=== PATIENT | male | born 1960 | race Caucasian/White ===

== ENCOUNTER 2017-06-22 19:35 | Observation (INO) | payer BC, OTHER ==
--- NOTE | 2017-06-22 20:14 | ED ---
General Adult HPI - General Chief complaint: Chest Pain Stated complaint: Chest tightness/SOB Time Seen by Provider: 06/22/17 19:55 Source: patient, RN notes reviewed Mode of arrival: wheelchair Limitations: no limitations - History of Present Illness Initial comments: 56-year-old male with no significant past medical history presents with a 5 day history of substernal chest pressure. Patient states that while at rest he has had multiple episodes of this pain. It is associated with shortness of breath and belching. Patient also reports a fullness in his throat and neck. Pain lasts several seconds. Nonexertional. No known history of coronary artery disease. Patient states had a stress test many years ago that was normal. Patient is a nonsmoker. He has a strong family history of coronary artery disease including his father at age 40 - Related Data Home Medications Medication Instructions Recorded Confirmed Amoxicillin 2,000 mg PO ONCE PRN 06/22/17 06/22/17 Allergies Allergy/AdvReac Type Severity Reaction Status Date / Time No Known Allergies Allergy Verified 06/22/17 19:53 Review of Systems ROS Statement: Those systems with pertinent positive or pertinent negative responses have been documented in the HPI. ROS Other: All systems not noted in ROS Statement are negative. Past Medical History Past Medical History: Hyperlipidemia, Osteoarthritis (OA), Sleep Apnea/CPAP/ BIPAP Additional Past Medical History / Comment(s): varicose veins, uses CPAP History of Any Multi-Drug Resistant Organisms: None Reported Past Surgical History: Appendectomy, Joint Replacement, Orthopedic Surgery Additional Past Surgical History / Comment(s): nasal surgery, rt shoulder surgery, left knee arthroscopy, left knee rpelaced Past Anesthesia/Blood Transfusion Reactions: Previous Problems w/ Anesthesia, Motion Sickness Additional Past Anesthesia/Blood Transfusion Reaction / Comment(s): previous knee arthroscopy - "stopped breathing - irregular heartrate"-no problems w/ recent total knee Past Psychological History: No Psychological Hx Reported Smoking Status: Never smoker Past Alcohol Use History: None Reported Past Drug Use History: None Reported - Past Family History Mother Family Medical History: No Reported History General Exam Limitations: no limitations General appearance: alert, in no apparent distress Head exam: Present: atraumatic, normocephalic Eye exam: Present: normal appearance, PERRL ENT exam: Present: normal exam Neck exam: Present: normal inspection. Absent: tenderness, meningismus Respiratory exam: Present: normal lung sounds bilaterally. Absent: respiratory distress, wheezes Cardiovascular Exam: Present: regular rate, normal rhythm GI/Abdominal exam: Present: soft. Absent: distended, tenderness, guarding Extremities exam: Present: normal inspection, normal capillary refill, pedal edema. Absent: calf tenderness Neurological exam: Present: alert, oriented X3, CN II-XII intact. Absent: motor sensory deficit Psychiatric exam: Present: normal affect, normal mood Skin exam: Present: warm, dry, intact. Absent: cyanosis, diaphoretic Course Vital Signs 06/22/17 06/22/17 06/22/17 19:38 20:27 21:14 Temperature 98 F Pulse Rate 74 77 65 Respiratory 16 20 18 Rate Blood Pressure 144/84 136/74 117/57 O2 Sat by Pulse 96 98 98 Oximetry EKG Findings - EKG Comments: EKG Findings:: EKG shows normal sinus rhythm, ventricular rate 74, NJ interval 208, QRS duration 106, QTC 4:15, no ST segment elevation, no T-wave inversions no ST segment depression Medical Decision Making - Medical Decision Making 56-year-old male presents with intermittent chest pressure and shortness of breath. Chest pressure lasts only seconds, Relieved by belching. EKG is nonischemic, chest x-ray shows no acute findings, laboratory studies reveals white blood cell count which is normal, hemoglobin stable 14.6, normal lipase, electrolytes are within normal limits. BNP: 31 Trop: neg Patient will be placed in observation for serial cardiac enzymes, telemetry, and cardiology consult. Diagnosis: Chest pain - Lab Data Result diagrams: 06/22/17 20:32 06/22/17 20:32 Lab Results 06/22/17 06/22/17 06/22/17 Range/Units 20:32 20:32 20:32 WBC 5.3 (3.8-10.6) k/uL RBC 5.08 (4.30-5.90) m/uL Hgb 14.6 (13.0-17.5) gm/dL Hct 43.1 (39.0-53.0) % MCV 84.9 (80.0-100.0) fL MCH 28.8 (25.0-35.0) pg MCHC 33.9 (31.0-37.0) g/dL RDW 13.9 (11.5-15.5) % Plt Count 197 (150-450) k/uL Neutrophils % 56 % Lymphocytes % 28 % Monocytes % 7 % Eosinophils % 7 % Basophils % 1 % Neutrophils # 2.9 (1.3-7.7) k/uL Lymphocytes # 1.5 (1.0-4.8) k/uL Monocytes # 0.4 (0-1.0) k/uL Eosinophils # 0.4 (0-0.7) k/uL Basophils # 0.1 (0-0.2) k/uL PT (9.0-12.0) sec INR (<1.2) APTT (22.0-30.0) sec Sodium 137 (137-145) mmol/L Potassium 3.7 (3.5-5.1) mmol/L Chloride 107 (98-107) mmol/L Carbon Dioxide 21 L (22-30) mmol/L Anion Gap 9 mmol/L BUN 17 (9-20) mg/dL Creatinine 1.00 (0.66-1.25) mg/dL Est GFR (MDRD) Af Amer >60 (>60 ml/min/1.73 sqM) Est GFR (MDRD) Non-Af >60 (>60 ml/min/1.73 sqM) Glucose 119 H (74-99) mg/dL Calcium 9.1 (8.4-10.2) mg/dL Magnesium 2.2 (1.6-2.3) mg/dL Total Bilirubin 0.3 (0.2-1.3) mg/dL AST 20 (17-59) U/L ALT 30 (21-72) U/L Alkaline Phosphatase 79 (38-126) U/L Total Creatine Kinase 73 (55-170) U/L CK-MB (CK-2) 0.9 (0.0-2.4) ng/mL CK-MB (CK-2) Rel Index 1.2 Troponin I <0.012 (0.000-0.034) ng/mL NT-Pro-B Natriuret Pep pg/mL Total Protein 6.1 L (6.3-8.2) g/dL Albumin 3.8 (3.5-5.0) g/dL Amylase 30 (30-110) U/L Lipase 107 (23-300) U/L 06/22/17 06/22/17 Range/Units 20:32 20:32 WBC (3.8-10.6) k/uL RBC (4.30-5.90) m/uL Hgb (13.0-17.5) gm/dL Hct (39.0-53.0) % MCV (80.0-100.0) fL MCH (25.0-35.0) pg MCHC (31.0-37.0) g/dL RDW (11.5-15.5) % Plt Count (150-450) k/uL Neutrophils % % Lymphocytes % % Monocytes % % Eosinophils % % Basophils % % Neutrophils # (1.3-7.7) k/uL Lymphocytes # (1.0-4.8) k/uL Monocytes # (0-1.0) k/uL Eosinophils # (0-0.7) k/uL Basophils # (0-0.2) k/uL PT 10.1 (9.0-12.0) sec INR 1.0 (<1.2) APTT 21.4 L (22.0-30.0) sec Sodium (137-145) mmol/L Potassium (3.5-5.1) mmol/L Chloride (98-107) mmol/L Carbon Dioxide (22-30) mmol/L Anion Gap mmol/L BUN (9-20) mg/dL Creatinine (0.66-1.25) mg/dL Est GFR (MDRD) Af Amer (>60 ml/min/1.73 sqM) Est GFR (MDRD) Non-Af (>60 ml/min/1.73 sqM) Glucose (74-99) mg/dL Calcium (8.4-10.2) mg/dL Magnesium (1.6-2.3) mg/dL Total Bilirubin (0.2-1.3) mg/dL AST (17-59) U/L ALT (21-72) U/L Alkaline Phosphatase (38-126) U/L Total Creatine Kinase (55-170) U/L CK-MB (CK-2) (0.0-2.4) ng/mL CK-MB (CK-2) Rel Index Troponin I (0.000-0.034) ng/mL NT-Pro-B Natriuret Pep 31 pg/mL Total Protein (6.3-8.2) g/dL Albumin (3.5-5.0) g/dL Amylase (30-110) U/L Lipase (23-300) U/L Disposition Clinical Impression: Chest pain Disposition: ADMITTED IP TO THIS [facility] Condition: Stable Referrals: Warren Bonilla MD [Primary Care Provider] - 1-2 days Decision to Admit Reason: Admit from EC Decision Date: 06/22/17 Decision Time: 21:15
[2017-06-22 20:43] LABS: Basophils # (A) 0.1 k/uL (0-0.2); Basophils % (A) 1 %; CH 29.5; CHCM 34.9; Eosinophils # (A) 0.4 k/uL (0-0.7); Eosinophils % (A) 7 %; HCT 43.1 % (39.0-53.0); HDW 2.66; HGB 14.6 gm/dL (13.0-17.5); Luc # (Auto) 0.07; Luc % (Auto) 1; Lymphocytes # (A) 1.5 k/uL (1.0-4.8); Lymphocytes % (A) 28 %; MCH 28.8 pg (25.0-35.0); MCHC 33.9 g/dL (31.0-37.0); MCV 84.9 fL (80.0-100.0); Monocytes # (A) 0.4 k/uL (0-1.0); Monocytes % (A) 7 %; Neutrophils # (A) 2.9 k/uL (1.3-7.7); Neutrophils % (A) 56 %; RBC 5.08 m/uL (4.30-5.90); RDW 13.9 % (11.5-15.5); WBC 5.3 k/uL (3.8-10.6); WBC (Perox) 5.32
[2017-06-22] MEDS ORDERED: ASPIRIN 325 MG TAB PO STA (20:57)
[2017-06-22] MEDS ORDERED: MAG HYDROX/AL HYDROX/SIMETH 30 ML, HYOSCYAMINE ELIXIR 10 ML, CIMETIDINE HCL 300 MG, LID... PO STA ×4 (20:58)
--- NOTE | 2017-06-22 21:00 | XR ---
EXAMINATION TYPE: XR chest 2V DATE OF EXAM: 06/22/2017 COMPARISON: 11/19/2015 HISTORY: Chest pain TECHNIQUE: Frontal and lateral views of the chest are obtained. FINDINGS: Heart and mediastinum are normal. Lungs are clear. Diaphragm is normal. There are chest le ads. IMPRESSION: Normal chest. No change.
[2017-06-22 21:01] LABS: ALT 30 U/L (21-72); AST 20 U/L (17-59); Alkaline Phosphatase 79 U/L (38-126); Amylase 30 U/L (30-110); Anion Gap 9 mmol/L; Blood Urea Nitrogen 17 mg/dL (9-20); Calcium 9.1 mg/dL (8.4-10.2); Carbon Dioxide 21 mmol/L (22-30); Chloride 107 mmol/L (98-107); Glucose 119 mg/dL (74-99); Magnesium 2.2 mg/dL (1.6-2.3); Non-African American GFR(MDRD) >60 (>60 ml/min/1.73 sqM); Potassium 3.7 mmol/L (3.5-5.1); Prothrombin Time 10.1 sec (9.0-12.0); Sodium 137 mmol/L (137-145); Total Bilirubin 0.3 mg/dL (0.2-1.3); Total Protein 6.1 g/dL (6.3-8.2)
[2017-06-22 21:05] LABS: Creatine Kinase 73 U/L (55-170)
[2017-06-22 21:13] LABS: Partial Thromboplastin Time 21.4 sec (22.0-30.0)
[2017-06-22] MEDS ORDERED: NALOXONE 0.4 MG/ML 1 ML VIAL IV PRN (21:15)
[2017-06-22] MEDS ORDERED: ACETAMINOPHEN TAB 325 MG TAB PO PRN (21:15)
[2017-06-22] MEDS ORDERED: SODIUM CHLORIDE 0.9% 1,000 ML IV SCH (21:15)
[2017-06-22] MEDS ORDERED: ONDANSETRON 4 MG/2 ML VIAL IVP PRN (21:15)
[2017-06-22 21:17] VITALS: RESP 18
[2017-06-22 21:17] LABS: Creatine Kinase MB 0.9 ng/mL (0.0-2.4); Troponin I <0.012 ng/mL (0.000-0.034)
[2017-06-22 22:11] VITALS: BMI 36.5
[2017-06-23 03:02] LABS: Basophils # (A) 0.1 k/uL (0-0.2); Basophils % (A) 1 %; CH 29.8; Eosinophils # (A) 0.4 k/uL (0-0.7); Eosinophils % (A) 9 %; HCT 41.1 % (39.0-53.0); HDW 2.98; HGB 14.2 gm/dL (13.0-17.5); Luc # (Auto) 0.17; Luc % (Auto) 4; Lymphocytes # (A) 1.3 k/uL (1.0-4.8); Lymphocytes % (A) 30 %; MCH 28.8 pg (25.0-35.0); MCHC 34.7 g/dL (31.0-37.0); Mean Platelet Volume 7.2; Monocytes # (A) 0.3 k/uL (0-1.0); Monocytes % (A) 6 %; Neutrophils # (A) 2.3 k/uL (1.3-7.7); Neutrophils % (A) 51 %; RBC 4.94 m/uL (4.30-5.90); RDW 12.7 % (11.5-15.5); WBC 4.5 k/uL (3.8-10.6); WBC (Perox) 4.36
[2017-06-23 03:26] LABS: ALT 37 U/L (21-72); AST 18 U/L (17-59); Alkaline Phosphatase 68 U/L (38-126); Anion Gap 7 mmol/L; Blood Urea Nitrogen 17 mg/dL (9-20); Calcium 8.9 mg/dL (8.4-10.2); Carbon Dioxide 23 mmol/L (22-30); Chloride 107 mmol/L (98-107); Glucose 103 mg/dL (74-99); Non-African American GFR(MDRD) >60 (>60 ml/min/1.73 sqM); Potassium 4.2 mmol/L (3.5-5.1); Sodium 137 mmol/L (137-145); Total Bilirubin 0.3 mg/dL (0.2-1.3); Total Protein 5.7 g/dL (6.3-8.2)
[2017-06-23 03:33] LABS: Creatine Kinase 40 U/L (55-170)
[2017-06-23 03:45] LABS: Creatine Kinase MB 0.7 ng/mL (0.0-2.4); Troponin I <0.012 ng/mL (0.000-0.034)
[2017-06-23] MEDS ORDERED: ASPIRIN 325 MG TAB PO SCH (09:00)
[2017-06-23 09:13] LABS: Creatine Kinase 38 U/L (55-170)
[2017-06-23 09:26] LABS: Troponin I <0.012 ng/mL (0.000-0.034)
[2017-06-23 09:35] LABS: Creatine Kinase MB 0.6 ng/mL (0.0-2.4)
--- NOTE | 2017-06-23 11:02 | P.CRDCN ---
History of Present Illness Consult date: 06/23/17 Chief complaint: chest pain History of present illness: This is a pleasant 56-year-old gentleman with no significant past medical history of coronary artery disease, diabetes, hypertension, dyslipidemia presented to the hospital complaining of chest discomfort. He was in his usual state of health until last few days when he started experiencing intermittent episodes of chest discomfort of very brief duration, last only for about a few seconds. No associated symptoms of shortness of breath, sweating, dizziness or lightheadedness, or syncope. As I mentioned earlier the patient does not have any risk factor for CAD. Also he does not smoke or drink alcohol. And he has no significant family history of coronary artery disease. The EKG showed sinus rhythm with left anterior fascicular block and without any ischemic ST or T-wave abnormalities. The cardiac enzymes were checked and came in to be unremarkable. The chest x-ray did not show any acute abnormalities. Past Medical History Past Medical History: Osteoarthritis (OA), Sleep Apnea/CPAP/BIPAP Additional Past Medical History / Comment(s): varicose veins, uses CPAP History of Any Multi-Drug Resistant Organisms: None Reported Past Surgical History: Appendectomy, Joint Replacement, Orthopedic Surgery Additional Past Surgical History / Comment(s): nasal surgery, rt shoulder surgery, left knee arthroscopy, left knee rpelaced Past Anesthesia/Blood Transfusion Reactions: Previous Problems w/ Anesthesia, Motion Sickness Additional Past Anesthesia/Blood Transfusion Reaction / Comment(s): previous knee arthroscopy - "stopped breathing - irregular heartrate"-no problems w/ recent total knee Past Psychological History: No Psychological Hx Reported Smoking Status: Never smoker Past Alcohol Use History: None Reported Past Drug Use History: None Reported - Past Family History Mother Family Medical History: No Reported History Father Family Medical History: Myocardial Infarction ([place]) Medications and Allergies Home Medications Medication Instructions Recorded Confirmed Type Amoxicillin 2,000 mg PO ONCE PRN 06/22/17 06/22/17 History Allergies Allergy/AdvReac Type Severity Reaction Status Date / Time No Known Allergies Allergy Verified 06/22/17 19:53 Physical Exam Vitals: Vital Signs Temp Pulse Pulse Resp BP BP Pulse Ox 06/23/17 08:00 18 06/23/17 07:36 98 F 54 L 18 119/67 97 06/23/17 04:00 97.9 F 64 18 114/68 94 L 06/22/17 23:01 18 06/22/17 21:48 97.8 F 59 L 18 140/81 96 06/22/17 21:14 65 18 117/57 98 06/22/17 20:27 77 20 136/74 98 06/22/17 19:38 98 F 74 16 144/84 96 Intake and Output 06/22/17 06/23/17 06/23/17 22:59 06:59 14:59 Other: # Voids 1 Weight 108.862 kg 108.862 kg - Constitutional General appearance: no acute distress - Respiratory Respiratory: bilateral: CTA - Cardiovascular Rhythm: regular Heart sounds: normal: S1, S2 Results 06/23/17 02:32 06/23/17 02:32 Cardiac Enzymes 06/22/17 06/22/17 06/23/17 Range/Units 20:32 20:32 02:32 AST 20 (17-59) U/L CK-MB (CK-2) 0.9 0.7 (0.0-2.4) ng/mL Troponin I <0.012 <0.012 (0.000-0.034) ng/mL 06/23/17 06/23/17 Range/Units 02:32 08:31 AST 18 (17-59) U/L CK-MB (CK-2) 0.6 (0.0-2.4) ng/mL Troponin I <0.012 (0.000-0.034) ng/mL Coagulation 06/22/17 Range/Units 20:32 PT 10.1 (9.0-12.0) sec APTT 21.4 L (22.0-30.0) sec CBC 06/22/17 06/23/17 Range/Units 20:32 02:32 WBC 5.3 4.5 (3.8-10.6) k/uL RBC 5.08 4.94 (4.30-5.90) m/uL Hgb 14.6 14.2 (13.0-17.5) gm/dL Hct 43.1 41.1 (39.0-53.0) % Plt Count 197 202 (150-450) k/uL Comprehensive Metabolic Panel 06/22/17 06/23/17 Range/Units 20:32 02:32 Sodium 137 137 (137-145) mmol/L Potassium 3.7 4.2 (3.5-5.1) mmol/L Chloride 107 107 (98-107) mmol/L Carbon Dioxide 21 L 23 (22-30) mmol/L BUN 17 17 (9-20) mg/dL Creatinine 1.00 1.00 (0.66-1.25) mg/dL Glucose 119 H 103 H (74-99) mg/dL Calcium 9.1 8.9 (8.4-10.2) mg/dL AST 20 18 (17-59) U/L ALT 30 37 (21-72) U/L Alkaline Phosphatase 79 68 (38-126) U/L Total Protein 6.1 L 5.7 L (6.3-8.2) g/dL Albumin 3.8 3.5 (3.5-5.0) g/dL Current Medications Generic Name Dose Route Start Last Admin Trade Name Freq PRN Reason Stop Dose Admin Acetaminophen 650 mg 06/22/17 21:15 Tylenol Tab PO Q6HR PRN Mild Pain or Fever > 100.5 Aspirin 325 mg 06/23/17 09:00 Aspirin PO DAILY ALYSE Sodium Chloride 1,000 mls @ 50 mls/hr 06/22/17 21:15 Saline 0.9% IV .Q20H ALYSE Naloxone HCl 0.2 mg 06/22/17 21:15 Narcan IV Q2M PRN Opioid Reversal Ondansetron HCl 4 mg 06/22/17 21:15 Zofran IVP Q8HR PRN Nausea And Vomiting Intake and Output 06/22/17 06/23/17 06/23/17 22:59 06:59 14:59 Other: # Voids 1 Weight 108.862 kg 108.862 kg 06/23/17 02:32 06/23/17 02:32 Assessment and Plan Assessment: Assessment #1 intermittent episodes of atypical chest discomfort #2 intermittent episodes of fluttering in the chest Plan #1 the patient was ruled out for acute coronary event #2 he does need to have a stress test to rule out any severe underlying CAD #3 I requested the patient to get up and around and if he is asymptomatic he might be able to be discharged home and have the test done as an outpatient. Thank you for allowing us participate in his care
--- NOTE | 2017-06-23 12:36 | P.HPIM ---
History of Present Illness H&P Date: 06/23/17 hISTORY and physical and Discharge summary. 56-year-old male with no significant past medical history presents with a 5 day history of substernal chest pressure. Patient states that while at rest he has had multiple episodes of this pain. It is associated with shortness of breath and belching. Patient also reports a fullness in his throat and neck. Pain lasts several seconds. Nonexertional. No known history of coronary artery disease. Patient states had a stress test many years ago that was normal. Patient is a nonsmoker. He has a strong family history of coronary artery disease including his father at age 40 however it was related to drugs. Patient was admitted for evaluation by cardiology for possible CAD. patient was seen in consultation by and he was cleared to go home and follow up with him as an outpatient for stress test. Review of Systems Constitutional: Denies chills, Denies chronic headaches, Denies lethargy, Denies malaise, Denies weight gain, Denies weight loss Eyes: denies blurred vision, denies bulging eye, denies decreased vision, denies diplopia Ears: deny: decreased hearing Ears, nose, mouth and throat: Denies dysphagia, Denies epistaxis, Denies neck lump, Denies sore throat, Denies vertigo Cardiovascular: Reports chest pain, Reports decreased exercise tolerance, Reports dyspnea on exertion, Reports shortness of breath, Denies high blood pressure, Denies rapid heart beat, Denies syncope Respiratory: Reports dyspnea, Reports sleep apnea, Reports snoring, Denies congestion, Denies cough, Denies cough with sputum, Denies home oxygen, Denies wheezing Gastrointestinal: Reports belching, Reports bloating, Denies abdominal pain, Denies dyspepsia, Denies heartburn, Denies hematemesis, Denies hematochezia, Denies melena, Denies nausea, Denies vomiting Genitourinary: Reports dysuria, Reports nocturia Musculoskeletal: Denies myalgias Musculoskeletal: absent: ankle pain, ankle stiffness, ankle swelling, elbow pain , elbow stiffness, elbow swelling, foot pain, foot stiffness, foot swelling, hand pain, hand stiffness, hand swelling, hip pain, hip stiffness, hip swelling , knee pain, knee stiffness, knee swelling, shoulder pain, shoulder stiffness, shoulder swelling, wrist pain, wrist stiffness, wrist swelling Integumentary: Denies pruritus, Denies rash Neurological: Denies numbness, Denies weakness Psychiatric: Denies anxiety, Denies depression Endocrine: Denies fatigue, Denies weight change Past Medical History Past Medical History: Osteoarthritis (OA), Sleep Apnea/CPAP/BIPAP Additional Past Medical History / Comment(s): varicose veins, uses CPAP History of Any Multi-Drug Resistant Organisms: None Reported Past Surgical History: Appendectomy, Joint Replacement, Orthopedic Surgery Additional Past Surgical History / Comment(s): nasal surgery, rt shoulder surgery, left knee arthroscopy, left knee rpelaced Past Anesthesia/Blood Transfusion Reactions: Previous Problems w/ Anesthesia, Motion Sickness Additional Past Anesthesia/Blood Transfusion Reaction / Comment(s): previous knee arthroscopy - "stopped breathing - irregular heartrate"-no problems w/ recent total knee Past Psychological History: No Psychological Hx Reported Smoking Status: Never smoker Past Alcohol Use History: None Reported Past Drug Use History: None Reported - Past Family History Mother Family Medical History: Dementia (Mother is 80-year-old has history of dementia. ) Father Family Medical History: Myocardial Infarction ([place]) (Father is 81-year-old had history of [place] at age of 40 secondary to drugs.) Brother(s) Family Medical History: No Reported History (Patient had one brother who at age of 80 from suicide.) Sister(s) Family Medical History: No Reported History (Patient had a sister who as an infant due to SIDS) Daughter(s) Family Medical History: No Reported History (Patient has one daughter 31-year- old no major medical problems.) Son(s) Family Medical History: No Reported History (Patient has one son 29-year-old no major medical problems) Medications and Allergies Allergies Allergy/AdvReac Type Severity Reaction Status Date / Time No Known Allergies Allergy Verified 06/22/17 19:53 Physical Exam Vitals: Vital Signs Temp Pulse Pulse Resp BP BP Pulse Ox 06/23/17 07:36 98 F 54 L 18 119/67 97 06/23/17 04:00 97.9 F 64 18 114/68 94 L 06/22/17 23:01 18 06/22/17 21:48 97.8 F 59 L 18 140/81 96 06/22/17 21:14 65 18 117/57 98 06/22/17 20:27 77 20 136/74 98 06/22/17 19:38 98 F 74 16 144/84 96 Intake and Output 06/22/17 06/23/17 06/23/17 22:59 06:59 14:59 Other: # Voids 1 Weight 108.862 kg 108.862 kg - Constitutional General appearance: average body habitus, no acute distress - EENT Eyes: anicteric sclerae, EOMI, PERRLA, no ptosis, no scleral icterus, normal appearance ENT: NA/AT, normal oropharynx, no thrush, no tonsillar exudates, no tonsillar swelling Ears: bilateral: normal - Neck Neck: no lymphadenopathy, normal ROM, no rigidity, no stridor, no thyromegaly Carotids: bilateral: upstroke normal Thyroid: bilateral: normal size - Respiratory Respiratory: bilateral: diminished, negative: dullness, rales, rhonchi, wheezing , prolonged expiration, prolonged inspiration - Cardiovascular Rhythm: regular Heart sounds: normal: S1, S2 Abnormal Heart Sounds: systolic murmur, no rub, no S3 Gallop, no S4 Gallop, no click - Gastrointestinal General gastrointestinal: normal bowel sounds, soft, no tenderness, no umbilical hernia, no ventral hernia - Integumentary Integumentary: normal, normal turgor - Neurologic Neurologic: CNII-XII intact - Musculoskeletal Musculoskeletal: gait normal, strength equal bilaterally - Psychiatric Psychiatric: A&O x's 3, appropriate affect, intact judgment & insight Results CBC & Chem 7: 06/23/17 02:32 06/23/17 02:32 Labs: Abnormal Lab Results - Last 24 Hours (Table) 06/22/17 06/22/17 06/23/17 Range/Units 20:32 20:32 02:32 APTT 21.4 L (22.0-30.0) sec Carbon Dioxide 21 L (22-30) mmol/L Glucose 119 H (74-99) mg/dL Total Creatine Kinase 40 L (55-170) U/L Total Protein 6.1 L (6.3-8.2) g/dL 06/23/17 Range/Units 02:32 APTT (22.0-30.0) sec Carbon Dioxide (22-30) mmol/L Glucose 103 H (74-99) mg/dL Total Creatine Kinase (55-170) U/L Total Protein 5.7 L (6.3-8.2) g/dL Thrombosis Risk Factor Assmnt - DVT/VTE Prophylaxis DVT/VTE Prophylaxis: Pharmacologic Prophylaxis ordered, Mechanical Prophylaxis ordered - Choose All That Apply Each Factor Represents 1 point: Age 41-60 years Thrombosis Risk Factor Assessment Total Risk Factor Score: 1 Thrombosis Risk Factor Assessment Level: Low Risk Assessment and Plan Assessment: Assessment and Plan: 1. Chest pain likely non cardiac with few worrisome features. will evaluate for CAD.cardiology consult, echocardiogram and possible stress test as an outpatient. Discussed with the patient the need to have an ultrasound of the gallbladder as well as HIDA scan with CCK as an outpatient for possible gallbladder disease. 2. Sleep apnea. will continue with CPAP. Patient was advised to wait loss and engage in healthy activities. Including diet and exercise and weight loss. 3. OA. stable. Post left total knee arthroplasty. About a year ago. 4. DVT prophylaxis. will continue with Heparin SC. 5. CI prophylaxis. same Rx. 6. Home and follow up with and in 1 week./
[2017-06-23 12:48] VITALS: BP 149/88; PULSE 78; TEMP 97.9
== END 2017-06-23 13:03 | disposition home or self-care (01) ==
LOC: EC 19:35 → 3OBS 21:15
PROVIDERS: ADMIT Internal Medicine; ATTEND Internal Medicine
DX: R07.89 Other chest pain (principal); G47.30 Sleep apnea, unspecified; Z99.89 Dependence on other enabling machines and devices; M19.90 Unspecified osteoarthritis, unspecified site; I83.90 Asymptomatic varicose veins of unspecified lower extremity; Z96.652 Presence of left artificial knee joint; Z82.49 Family history of ischemic heart disease and other diseases of the circulatory system
CPT/HCPCS: 36415; 93005; 83880; 80053 ×2; 82150; 82550 ×2; 82553 ×2; 83690; 83735; 84484 ×2; 85025 ×2; 85610; 85730; 71020; 99285; G0378 ×2

== ENCOUNTER → 2019-04-14 | Outpatient (CLI) | payer BC ==
--- NOTE | 2019-04-14 15:28 | CT ---
EXAMINATION TYPE: CT sinus wo con DATE OF EXAM: 04/14/2019 COMPARISON: NONE HISTORY: Sinus pain and pressure x 4 months. Chronic sinusitis border. CT DLP: 660.9 mGycm. Automated Exposure Control for Dose Reduction was Utilized. TECHNIQUE: CT scan of the sinuses is performed without contrast, axial images are obtained, coronal r eformatted images are also reviewed. FINDINGS: There is small degree of curvilinear mucosal thickening posterior left sphenoid sinus. Ther e is similar mild mucosal thickening left anterior ethmoid sinus axial image 40. Remainder paranasal sinuses are clear without suspicious opacification or air-fluid levels The ostiomeatal complex is pa tent bilaterally on the coronal images. The nasal septum is deviated to right of midline inferiorly. Visualized portion of mastoid air cells show no abnormal opacification. The globes are intact bilate rally. IMPRESSION: Mild chronic paranasal sinus disease. No acute sinusitis.
== END | disposition home or self-care (01) ==
LOC: RADCTMAIN 14:40
PROVIDERS: ATTEND Otolaryngology
DX: J32.9 Chronic sinusitis, unspecified (principal)
CPT/HCPCS: 70486

== ENCOUNTER 2019-09-22 17:43 | Observation (INO) | payer BC ==
--- NOTE | 2019-09-22 18:46 | ED ---
Chest Pain HPI - General Chief Complaint: Chest Pain Stated Complaint: chest pain, SOB Time Seen by Provider: 09/22/19 18:01 Source: patient, RN notes reviewed, old records reviewed Mode of arrival: wheelchair Limitations: no limitations - History of Present Illness Initial Comments: This is a 58-year-old male DF for evaluation patient is persistent chest pain left-sided chest pain patient has current evidence current chest pain but mainly shortness of breath shortness with exertion asthma to lower extremity edema concern for heart failure. No significant medical history otherwise. No known history of blood pressure cholesterol or diabetes nonsmoker. No significant recent travel history or sick contacts. Patient is his main complaint appears to be 6 exertional dyspnea MD Complaint: chest pain, other (Exertional dyspnea) -: days(s) Pain Location: left chest Severity: moderate Severity scale (1-10): 4 Quality: heaviness Consistency: constant, intermittent Improves With: nothing Worsens With: nothing Anginal Symptoms: dyspnea Other Symptoms: palpitations Treatments Prior to Arrival: none - Related Data Allergies Allergy/AdvReac Type Severity Reaction Status Date / Time No Known Allergies Allergy Verified 09/22/19 17:56 Review of Systems ROS Statement: Those systems with pertinent positive or pertinent negative responses have been documented in the HPI. ROS Other: All systems not noted in ROS Statement are negative. EKG Findings - EKG Comments: EKG Findings:: EKG shows sinus rhythm of 65, IL 240, QRS 90, QTC 382 Past Medical History Past Medical History: Osteoarthritis (OA), Sleep Apnea/CPAP/BIPAP Additional Past Medical History / Comment(s): varicose veins, uses CPAP History of Any Multi-Drug Resistant Organisms: None Reported Past Surgical History: Appendectomy, Joint Replacement, Orthopedic Surgery Additional Past Surgical History / Comment(s): nasal surgery, rt shoulder surgery, left knee arthroscopy, left knee rpelaced Past Anesthesia/Blood Transfusion Reactions: Previous Problems w/ Anesthesia, Motion Sickness Additional Past Anesthesia/Blood Transfusion Reaction / Comment(s): previous knee arthroscopy - "stopped breathing - irregular heartrate"-no problems w/recent total knee Past Psychological History: No Psychological Hx Reported Smoking Status: Never smoker Past Alcohol Use History: None Reported Past Drug Use History: None Reported - Past Family History Mother Family Medical History: Dementia (Mother is 80-year-old has history of dementia.) Father Family Medical History: Myocardial Infarction ([place]) (Father is 81-year-old had history of [place] at age of 40 secondary to drugs.) Brother(s) Family Medical History: No Reported History (Patient had one brother who at age of 80 from suicide.) Sister(s) Family Medical History: No Reported History (Patient had a sister who as an infant due to SIDS) Daughter(s) Family Medical History: No Reported History (Patient has one daughter 31-year-old no major medical problems.) Son(s) Family Medical History: No Reported History (Patient has one son 29-year-old no major medical problems) General Exam Limitations: no limitations General appearance: alert, in no apparent distress, anxious Head exam: Present: atraumatic, normocephalic, normal inspection Eye exam: Present: normal appearance, PERRL, EOMI. Absent: scleral icterus, conjunctival injection, periorbital swelling ENT exam: Present: normal exam, mucous membranes moist Neck exam: Present: normal inspection. Absent: tenderness, meningismus, lymphadenopathy Respiratory exam: Present: normal lung sounds bilaterally. Absent: respiratory distress, wheezes, rales, rhonchi, stridor Cardiovascular Exam: Present: regular rate, normal rhythm, normal heart sounds. Absent: systolic murmur, diastolic murmur, rubs, gallop, clicks GI/Abdominal exam: Present: soft, normal bowel sounds. Absent: distended, tenderness, guarding, rebound, rigid Extremities exam: Present: normal inspection, full ROM, normal capillary refill. Absent: tenderness, pedal edema, joint swelling, calf tenderness Back exam: Present: normal inspection Neurological exam: Present: alert, oriented X3, CN II-XII intact Psychiatric exam: Present: normal affect, normal mood Skin exam: Present: warm, dry, intact, normal color. Absent: rash Course Vital Signs 09/22/19 17:56 Temperature 98.1 F Pulse Rate 78 Respiratory 18 Rate Blood Pressure 134/82 O2 Sat by Pulse 96 Oximetry - Reevaluation(s) Reevaluation #1: 09/22/19 19:25 Medical records reviewed Reevaluation #2: 09/22/19 21:04 Patient still does have persistent chest heaviness and shortness of breath with exertion here in the ER especially when he got for x-ray Reevaluation #3: 09/22/19 21:04 Patient family informed of results questions are answered - Consultations Consultation #1: Spoke with urination are agreeable for admissionfor an admission Chest Pain MDM - MDM 58 male to be admitted for chest pain observation no significant typical symptoms, [place] for cardiac observation Critical Care Time Critical Care Time: Yes Total Critical Care Time: 31 Disposition Clinical Impression: Chest pain Disposition: ADMITTED IP TO THIS [facility] Condition: Undetermined Instructions (If sedation given, give patient instructions): Chest Pain (ED) Referrals: None,Stated [Primary Care Provider] - 1-2 days
[2019-09-22 19:01] LABS: Basophils # (A) 0.1 k/uL (0-0.2); Basophils % (A) 1 %; Eosinophils # (A) 0.3 k/uL (0-0.7); Eosinophils % (A) 5 %; HCT 42.8 % (39.0-53.0); HGB 14.7 gm/dL (13.0-17.5); Lymphocytes # (A) 1.4 k/uL (1.0-4.8); Lymphocytes % (A) 25 %; MCH 28.4 pg (25.0-35.0); MCHC 34.4 g/dL (31.0-37.0); MCV 82.4 fL (80.0-100.0); Mean Platelet Volume 7.7; Monocytes # (A) 0.3 k/uL (0-1.0); Monocytes % (A) 5 %; Neutrophils # (A) 3.4 k/uL (1.3-7.7); Neutrophils % (A) 60 %; Platelet Count 237 k/uL (150-450); RBC 5.19 m/uL (4.30-5.90); WBC 5.6 k/uL (3.8-10.6)
--- NOTE | 2019-09-22 19:03 | XR ---
EXAMINATION TYPE: XR chest 2V DATE OF EXAM: 09/22/2019 COMPARISON: 06/22/2017 HISTORY: 58-year-old male with chest pain and shortness of breath TECHNIQUE: PA and lateral views FINDINGS: Heart normal size. Aorta and pulmonary vasculature within normal limits. Mild diffuse peribronchial c uffing and interstitial prominence. No consolidation or pleural effusion. IMPRESSION: Diffuse peribronchial cuffing and interstitial prominence. Correlate for bronchitis, asthma, or atypi abad pneumonias.
[2019-09-22 19:09] LABS: Albumin 4.2 g/dL (3.5-5.0); Calcium 9.3 mg/dL (8.4-10.2); Magnesium 2.1 mg/dL (1.6-2.3); Potassium 4.3 mmol/L (3.5-5.1); Total Bilirubin 0.3 mg/dL (0.2-1.3); Total Protein 6.6 g/dL (6.3-8.2)
[2019-09-22 19:12] LABS: INR 0.9 (<1.2); Partial Thromboplastin Time 22.9 sec (22.0-30.0); Prothrombin Time 9.6 sec (9.0-12.0)
[2019-09-22] MEDS ORDERED: NITROGLYCERIN SL TABS 0.4 MG TAB SUBLINGUAL PRN (21:02)
[2019-09-22] MEDS ORDERED: HEPARIN SODIUM,PORCINE 5,000 UNIT/ML 1 ML VIAL IV PRN (21:02)
[2019-09-22] MEDS ORDERED: HEPARIN SODIUM,PORCINE 5,000 UNIT/ML 1 ML VIAL IV ONE (21:02)
[2019-09-22] MEDS ORDERED: ASPIRIN 81 MG PO STA (21:02)
[2019-09-22] MEDS ORDERED: HEPARIN SOD,PORK IN 0.45% NACL 25,000 UNIT in 0.45% NACL 1 250ML.BAG IV SCH (21:15)
[2019-09-23 04:44] LABS: Cholesterol 189 mg/dL (<200); HDL Cholesterol 35 mg/dL (40-60); LDL Cholesterol,Calculated 115 mg/dL (0-99); Triglycerides 193 mg/dL (<150)
[2019-09-23 07:09] LABS: Mean Platelet Volume 7.6; Platelet Count 213 k/uL (150-450)
[2019-09-23] MEDS ORDERED: SODIUM CHLORIDE 0.9% 1,000 ML in EMPTY BAG 1 BAG IV ONE (08:48)
[2019-09-23] MEDS ORDERED: ALPRAZolam 0.25 MG TAB PO PRN (08:48)
[2019-09-23] MEDS ORDERED: NITROGLYCERIN SL TABS 0.4 MG TAB SUBLINGUAL PRN ×2 (08:48→14:52)
[2019-09-23] MEDS ORDERED: ATORVASTATIN 80 MG TAB PO STA (08:48)
[2019-09-23] MEDS ORDERED: ALPRAZolam 0.5 MG TAB PO PRN (08:48)
[2019-09-23] MEDS ORDERED: ASPIRIN 325 MG TAB PO SCH (09:00)
[2019-09-23] MEDS ORDERED: ATORVASTATIN 40 MG TAB PO SCH (09:00)
--- NOTE | 2019-09-23 11:48 | P.CRDCN ---
<Yessica Frances - Last Filed: 09/23/19 11:44> History of Present Illness History of present illness: HISTORY OF PRESENTING ILLNESS This is a pleasant 58-year-old male past medical history significant for obstructive sleep apnea. He denies prior history of coronary artery disease and does not follow with a hse manager or even a primary care physician for that matter. We have been asked to see in consultation for chest pain. He states for the previous 2-3 weeks he has been experiencing an increase in s hortness of breath. He states he does exercise somewhat regularly on an elliptical. He uses the elliptical roughly once per week. He typically can exercise for about 30 minutes with no symptoms however in the last couple weeks he has noticed when he gets on the elliptical he cannot get past 2 minutes without feeling short of breath. He also walks a short distance from his truck into his place of work and he has to stop frequently to catch his breath. Yesterday he was attempting to play catch with his dog in his house and just to get up and get the ball caused him to feel short of breath with exertion. The pain does not radiate through to the back, down the arm, into the neck or the jaw. It remains centrally located is a heavy pressure type sensation. He denies associated dizziness, palpitations, nausea, vomiting or diaphoresis. DIAGNOSTICS EKG reveals sinus mechanism with a first-degree AV block. Chest xray peribronchial cuffing. Laboratory reviewed, CBC unremarkable, sodium 136, potassium 4.3, creatinine 1.09, magnesium 2.1, creatinine enzymes negative 3, NT proBNP 32, d-dimer 0.39, LDL 115 and HDL 35. He takes no daily cardiac medications. REVIEW OF SYSTEMS At the time of my exam: CONSTITUTIONAL: Denies fever or chills. CARDIOVASCULAR: Denies chest pain, shortness of breath, orthopnea, PND or palpitations. RESPIRATORY: Denies cough. GASTROINTESTINAL: Denies abdominal pain, diarrhea, constipation, nausea or vomiting. MUSCULOSKELETAL: Denies myalgias. NEUROLOGIC: Denies numbness, tingling or weakness. ENDOCRINE: Denies fatigue, weight change, polydipsia or polyurina. GENITOURINARY: Denies burning, hematuria or urgency with micturation. HEMATOLOGIC: Denies history of anemia or bleeding. PHYSICAL EXAMINATION Blood pressure 117/76 heart rate 61 afebrile and maintaining oxygen saturation on room air. CONSTITUTIONAL: No apparent distress. HEENT: Head is normocephalic. Pupils are equal, round. Sclerae anicteric. Mucous membranes of the mouth are moist. No JVD. No carotid bruit. CHEST EXAMINATION: Lungs are clear to auscultation. No chest wall tenderness is noted on palpation or with deep breathing. HEART EXAMINATION: Regular rate and rhythm. S1, S2 heard. No murmurs, gallops or rub. ABDOMEN: Soft, nontender. Positive bowel sounds. EXTREMITIES: 2+ peripheral pulses, no lower extremity edema and no calf tenderness. NEUROLOGIC EXAMINATION: Patient is awake, alert and oriented x3. ASSESSMENT Unstable angina Dyslipidemia Obstructive sleep apnea Family history of premature coronary artery disease, father had cardiac event in his 40s. Obesity, BMI 39 PLAN Recommend proceeding with cardiac catheterization to assess for underlying coronary artery disease. I have discussed the risks, benefits and alternative therapies for the above-mentioned procedure and for both sedation/analgesia as well as necessary blood product administration, if indicated, as they pertain to this patient. The patient has indicated understanding and acceptance of the risks and procedures discussed. Questions have been answered appropriately and he is agreeable to move forward with the above stated procedure. Initiate atorvastatin 40 mg daily for optimal LDL cholesterol less than 70. Obtain 2-D echocardiogram and Doppler study to assess cardiac structure and fun ction. Further recommendations to follow based upon clinical course. Thank you kindly for this consultation. Nurse Practitioner note has been reviewed, I agree with a documented findings and plan of care. Patient was seen and examined. Past Medical History Past Medical History: Sleep Apnea/CPAP/BIPAP Additional Past Medical History / Comment(s): varicose veins, uses CPAP History of Any Multi-Drug Resistant Organisms: None Reported Past Surgical History: Appendectomy, Joint Replacement, Orthopedic Surgery Additional Past Surgical History / Comment(s): nasal surgery, rt shoulder surgery, left knee arthroscopy, left knee replaced Past Anesthesia/Blood Transfusion Reactions: Previous Problems w/ Anesthesia, Motion Sickness Additional Past Anesthesia/Blood Transfusion Reaction / Comment(s): previous knee arthroscopy - "stopped breathing - irregular heartrate"-no problems total knee Past Psychological History: No Psychological Hx Reported Smoking Status: Never smoker Past Alcohol Use History: None Reported Past Drug Use History: None Reported - Past Family History Mother Family Medical History: Dementia Father Family Medical History: Myocardial Infarction ([place]) Brother(s) Family Medical History: No Reported History (Patient had one brother who at age of 80 from suicide.) Additional Family Medical History / Comment(s): suicide Sister(s) Family Medical History: No Reported History (Patient had a sister who as an infant due to SIDS) Additional Family Medical History / Comment(s): SIDS Daughter(s) Family Medical History: No Reported History Son(s) Family Medical History: No Reported History Medications and Allergies Home Medications Medication Instructions Recorded Confirmed Type No Known Home Medications 09/22/19 09/22/19 History Allergies Allergy/AdvReac Type Severity Reaction Status Date / Time No Known Allergies Allergy Verified 09/22/19 22:47 Physical Exam Vitals: Vital Signs Temp Pulse Pulse Resp BP BP BP 09/23/19 07:20 98.2 F 57 L 18 119/76 09/23/19 05:00 97.9 F 62 18 115/77 09/22/19 22:34 97.8 F 53 L 18 118/73 09/22/19 21:39 61 18 112/77 09/22/19 17:56 98.1 F 78 18 134/82 Pulse Ox 09/23/19 07:20 96 09/23/19 05:00 96 09/22/19 22:34 97 09/22/19 21:39 95 09/22/19 17:56 96 Intake and Output 09/22/19 09/23/19 09/23/19 22:59 06:59 14:59 Intake Total 69.819 Balance 69.819 Intake: Intake, IV Titration 69.819 Amount Heparin Sod,Pork in 0.45% 69.819 NaCl 25,000 unit In 0.45 % NaCl 1 250ml.bag @ 8 UNITS/KG/HR 9.435 mls/hr IV .Q24H [facility] Rx#: [id number] Other: Voiding Method Toilet # Voids 1 Weight 118.8 kg Results 09/23/19 06:42 09/22/19 18:23 Cardiac Enzymes 09/22/19 09/22/19 09/23/19 Range/Units 18:23 18:23 00:48 AST 26 (17-59) U/L Troponin I <0.012 <0.012 (0.000-0.034) ng/mL 09/23/19 Range/Units 06:42 AST (17-59) U/L Troponin I <0.012 (0.000-0.034) ng/mL Coagulation 09/22/19 09/23/19 Range/Units 18:23 04:04 PT 9.6 (9.0-12.0) sec APTT 22.9 29.9 (22.0-30.0) sec Lipids 09/23/19 Range/Units 04:04 Triglycerides 193 H (<150) mg/dL Cholesterol 189 (<200) mg/dL HDL Cholesterol 35 L (40-60) mg/dL CBC 09/22/19 09/23/19 Range/Units 18:23 06:42 WBC 5.6 (3.8-10.6) k/uL RBC 5.19 (4.30-5.90) m/uL Hgb 14.7 (13.0-17.5) gm/dL Hct 42.8 (39.0-53.0) % Plt Count 237 213 (150-450) k/uL Comprehensive Metabolic Panel 09/22/19 Range/Units 18:23 Sodium 136 L (137-145) mmol/L Potassium 4.3 (3.5-5.1) mmol/L Chloride 104 (98-107) mmol/L Carbon Dioxide 24 (22-30) mmol/L BUN 21 H (9-20) mg/dL Creatinine 1.09 (0.66-1.25) mg/dL Glucose 120 H (74-99) mg/dL Calcium 9.3 (8.4-10.2) mg/dL AST 26 (17-59) U/L ALT 19 (4-49) U/L Alkaline Phosphatase 89 (38-126) U/L Total Protein 6.6 (6.3-8.2) g/dL Albumin 4.2 (3.5-5.0) g/dL Current Medications Generic Name Dose Route Start Last Admin Trade Name Freq PRN Reason Stop Dose Admin Aspirin 325 mg 09/23/19 09:00 Aspirin PO DAILY ALY[facility] Heparin Sodium (Porcine) 0 unit 09/22/19 21:02 09/23/19 05:22 Heparin IV 4,000 unit Q6HR PRN Administration Low PTT Protocol Heparin Sodium/Sodium Chloride 250 mls @ 9.435 mls/hr 09/22/19 21:15 09/23/19 05:19 25,000 unit/ Sodium Chloride IV 11 units/kg/hr .Q24H ALYSE 12.973 mls/hr Titration Protocol 8 UNITS/KG/HR Nitroglycerin 0.4 mg 09/22/19 21:02 Nitrostat SUBLINGUAL Q5M PRN Chest Pain Intake and Output 09/22/19 09/23/19 09/23/19 22:59 06:59 14:59 Intake Total 69.819 Balance 69.819 Intake: Intake, IV Titration 69.819 Amount Heparin Sod,Pork in 0.45% 69.819 NaCl 25,000 unit In 0.45 % NaCl 1 250ml.bag @ 8 UNITS/KG/HR 9.435 mls/hr IV .Q24H [facility] Rx#: [id number] Other: Voiding Method Toilet # Voids 1 Weight 118.8 kg 09/23/19 06:42 09/22/19 18:23 <Winston Doan - Last Filed: 09/23/19 13:02> History of Present Illness History of present illness: Patient interviewed and examined Continue cardiovascular risk between 8 and 9% Lowest HDL Obstructive sleep apnea BMI 39 Over the last several weeks the patient has had significant reduction in exercise capacity and he is unable to perform activities that he could about a month back Family history of premature coronary artery disease Proceed with coronary angiography today Physical Exam Vitals: Vital Signs Temp Pulse Pulse Resp BP BP BP 09/23/19 11:25 97.5 F L 61 18 117/76 09/23/19 07:20 98.2 F 57 L 18 119/76 09/23/19 05:00 97.9 F 62 18 115/77 09/22/19 22:34 97.8 F 53 L 18 118/73 09/22/19 21:39 61 18 112/77 09/22/19 17:56 98.1 F 78 18 134/82 Pulse Ox 09/23/19 11:25 95 09/23/19 07:20 96 09/23/19 05:00 96 09/22/19 22:34 97 09/22/19 21:39 95 09/22/19 17:56 96 Intake and Output 02/24/20 02/25/20 02/25/20 22:59 06:59 14:59 Intake Total 69.819 Balance 69.819 Intake: Intake, IV Titration 69.819 Amount Heparin Sod,Pork in 0.45% 69.819 NaCl 25,000 unit In 0.45 % NaCl 1 250ml.bag @ 8 UNITS/KG/HR 9.435 mls/hr IV .Q24H [facility] Rx#: [id number] Other: Voiding Method Toilet Toilet # Voids 1 Weight 118.8 kg Results 09/23/19 06:42 09/22/19 18:23 Cardiac Enzymes 09/22/19 09/22/19 09/23/19 Range/Units 18:23 18:23 00:48 AST 26 (17-59) U/L Troponin I <0.012 <0.012 (0.000-0.034) ng/mL 09/23/19 Range/Units 06:42 AST (17-59) U/L Troponin I <0.012 (0.000-0.034) ng/mL Coagulation 09/22/19 09/23/19 Range/Units 18:23 04:04 PT 9.6 (9.0-12.0) sec APTT 22.9 29.9 (22.0-30.0) sec Lipids 09/23/19 Range/Units 04:04 Triglycerides 193 H (<150) mg/dL Cholesterol 189 (<200) mg/dL HDL Cholesterol 35 L (40-60) mg/dL CBC 09/22/19 09/23/19 Range/Units 18:23 06:42 WBC 5.6 (3.8-10.6) k/uL RBC 5.19 (4.30-5.90) m/uL Hgb 14.7 (13.0-17.5) gm/dL Hct 42.8 (39.0-53.0) % Plt Count 237 213 (150-450) k/uL Comprehensive Metabolic Panel 09/22/19 Range/Units 18:23 Sodium 136 L (137-145) mmol/L Potassium 4.3 (3.5-5.1) mmol/L Chloride 104 (98-107) mmol/L Carbon Dioxide 24 (22-30) mmol/L BUN 21 H (9-20) mg/dL Creatinine 1.09 (0.66-1.25) mg/dL Glucose 120 H (74-99) mg/dL Calcium 9.3 (8.4-10.2) mg/dL AST 26 (17-59) U/L ALT 19 (4-49) U/L Alkaline Phosphatase 89 (38-126) U/L Total Protein 6.6 (6.3-8.2) g/dL Albumin 4.2 (3.5-5.0) g/dL Current Medications Generic Name Dose Route Start Last Admin Trade Name Freq PRN Reason Stop Dose Admin Alprazolam 0.25 mg 09/23/19 08:48 Xanax PO Q6HR PRN Mild Anxiety Alprazolam 0.5 mg 09/23/19 08:48 Xanax PO Q6HR PRN Moderate Anxiety Aspirin 325 mg 09/23/19 09:00 09/23/19 09:14 Aspirin PO 325 mg DAILY ALYSE Administration Atorvastatin Calcium 40 mg 09/24/19 09:00 Lipitor PO DAILY [facility] Sodium Chloride 1,000 ml/ IV 1,000 mls @ 118.8 mls/hr 09/23/19 08:48 09/23/19 09:14 Solution IV 09/23/19 17:13 118.8 mls/hr .Q8H26M ONE Administration 1 ML/KG/HR Nitroglycerin 0.4 mg 09/22/19 21:02 Nitrostat SUBLINGUAL Q5M PRN Chest Pain Nitroglycerin 0.4 mg 09/23/19 08:48 Nitrostat SUBLINGUAL Q5M PRN Chest Pain Intake and Output 09/22/19 09/23/19 09/23/19 22:59 06:59 14:59 Intake Total 69.819 Balance 69.819 Intake: Intake, IV Titration 69.819 Amount Heparin Sod,Pork in 0.45% 69.819 NaCl 25,000 unit In 0.45 % NaCl 1 250ml.bag @ 8 UNITS/KG/HR 9.435 mls/hr IV .Q24H [facility] Rx#: [id number] Other: Voiding Method Toilet Toilet # Voids 1 Weight 118.8 kg 09/23/19 06:42 09/22/19 18:23
[2019-09-23] MEDS ORDERED: IV FLUID CONTINUATION 1,000 ML IV ONE (14:10)
[2019-09-23] MEDS ORDERED: MIDAZOLAM 2 MG/2 ML VIAL IVP ONE (14:23)
[2019-09-23] MEDS ORDERED: LIDOCAINE 1% INJ 10MG/ML (20 ML MDV) SQ ONE (14:25)
[2019-09-23] MEDS: VERAPAMIL SYRINGE (5 MG/10 ML) INTRAARTER ONE ×2 (14:25→14:52)
[2019-09-23] MEDS ORDERED: fentaNYL (PF) 50 MCG/ML 2 ML AMP IVP ONE (14:30)
[2019-09-23] MEDS ORDERED: BIVALIRUDIN BOLUS 250 MG/50 ML IV ONE (14:37)
[2019-09-23] MEDS ORDERED: BIVALIRUDIN 250 MG in SODIUM CHLORIDE 0.9% 50 ML IV ONE (14:38)
[2019-09-23] MEDS ORDERED: NITROGLYCERIN 1000MCG/10ML SYRINGE INTRACORON ONE (14:46)
[2019-09-23] MEDS ORDERED: MAG HYDROX/AL HYDROX/SIMETH 30 ML CUP PO PRN (14:52)
[2019-09-23] MEDS ORDERED: RX INFO: IV CONTRAST WAS GIVEN 1 EACH MISC MISCELLANE PRN (14:52)
[2019-09-23] MEDS ORDERED: ZOLPIDEM 5 MG TAB PO PRN (14:52)
[2019-09-23] MEDS ORDERED: ATROPINE SULFATE 0.1 MG/ML 10ML SYRINGE IV PRN (14:52)
[2019-09-23] MEDS ORDERED: PRASUGREL 10 MG TAB PO ONE (14:54)
[2019-09-23] MEDS ORDERED: IOPAMIDOL-370 125ML BTL INJ ONE (14:54)
[2019-09-23] MEDS ORDERED: SODIUM CHLORIDE 0.9% 1,000 ML IV SCH (15:00)
--- NOTE | 2019-09-23 16:00 | ECHOF ---
Referral Reason:cp MEASUREMENTS -------- HEIGHT: 172.7 cm WEIGHT: 129.7 kg BP: 115/77 IVSd: 1.3 cm (0.6 - 1.1) LVIDd: 5.3 cm (3.9 - 5.3) LVPWd: 1.3 cm (0.6 - 1.1) IVSs: 1.4 cm LVIDs: 4.6 cm LVPWs: 1.4 cm LA Diam: 4.0 cm (2.7 - 3.8) RVIDd: 3.2 cm (< 3.3) LAESV Index (A-L): 27.94 ml/m Ao Diam: 3.2 cm (2.0 - 3.7) AV Cusp: 2.0 cm (1.5 - 2.6) EPSS: 0.4 cm MV E Serjio: 0.40 m/s MV DecT: 151 ms MV A Serjio: 0.51 m/s MV E/A Ratio: 0.78 RAP: 5.00 mmHg RVSP: 12.20 mmHg MV EF SLOPE: 114.72 mm/s (70 - 150) MV EXCURSION: 14.23 mm (> 18.000) FINDINGS -------- Sinus rhythm. This was a technically adequate study. The left ventricular size is normal. There is mild concentric left ventricular hypertrophy. Overa ll left ventricular systolic function is normal with, an EF between 55 - 60 %. The diastolic fillin g pattern is normal for the age of the patient 5.55. The right ventricle is normal in size. The left atrial size is normal. Normal LA size by volume 22+/-6 ml/m2. The right atrial size is normal. The aortic valve is trileaflet, and appears structurally normal. No aortic stenosis or regurgitation. Mild mitral annular calcification present. Mild mitral regurgitation is present. Mild tricuspid regurgitation present. Right ventricular systolic pressure is normal at < 35 mmHg. There is no evidence of pulmonary hypertension. There is no pulmonic regurgitation present. The aortic root size is normal. There is no pericardial effusion. CONCLUSIONS -------- 1. Sinus rhythm. 2. This was a technically adequate study. 3. The left ventricular size is normal. 4. There is mild concentric left ventricular hypertrophy. 5. Overall left ventricular systolic function is normal with, an EF between 55 - 60 %. 6. The diastolic filling pattern is normal for the age of the patient 5.55 7. The right ventricle is normal in size. 8. The left atrial size is normal. 9. Normal LA size by volume 22+/-6 ml/m2. 10. The right atrial size is normal. 11. The aortic valve is trileaflet, and appears structurally normal. No aortic stenosis or regurgitat ion. 12. Mild mitral annular calcification present. 13. Mild mitral regurgitation is present. 14. Mild tricuspid regurgitation present. 15. Right ventricular systolic pressure is normal at < 35 mmHg. 16. There is no evidence of pulmonary hypertension. 17. There is no pulmonic regurgitation present. 18. The aortic root size is normal. 19. There is no pericardial effusion. COUNCILPERSON: Temitope Mayberry RDCS
--- NOTE | 2019-09-23 16:04 | P.EN ---
i came to see the pt and he is in the laboratory equipment cleaner per staff, we will follow up
--- NOTE | 2019-09-23 17:38 | CC ---
CARDIAC CATHETERIZATION REPORT DATE OF SERVICE: 09/23/2019 PERFORMING PHYSICIAN: Benjamin Roberts MD. PROCEDURES PERFORMED: 1. Selective right and left coronary angiogram. 2. Successful stenting of the mid right coronary artery using 3.5 x 12 mm Xience drug- eluting stent with an excellent angiographic result and reduction of stenosis from 99% to 0%. INDICATION: This is a 58-year-old gentleman with significant family history of coronary artery disease who was admitted to the observation unit with chest discomfort with classical anginal features. Because of that, a heart catheterization was advised. APPROACH: Right radial artery. COMPLICATIONS: None. LEVEL OF SEDATION: Moderate, with sedation length of 26 minutes. PROCEDURE DESCRIPTION: After obtaining informed consent, the patient was brought to the cardiac lab systems analyst. The right radial artery was cannulated using micropuncture technique. The micropuncture wire passed easily. Then I placed a 6-Hebrew sheath 11 cm at the right radial artery. After that the patient was given 2 mg of verapamil IA. I did selective right and left coronary angiogram using JR4 and JL3.5 catheters. Left heart catheterization was not performed. After that I did intervene on the RCA. Please see separate paragraph for that. SELECTIVE CORONARY ANGIOGRAM: 1. The right coronary artery is a large-caliber vessel and it is a dominant vessel. The RCA has a critical lesion in the mid portion that appeared to be in the range of 99.9%. The RCA after that in the proximal and distal portions appeared to have mild disease only. 2. The left main is angiographically normal. It bifurcates into LCX, ramus intermedius and left anterior descending artery. 3. The left circumflex is a large-caliber vessel. It is a nondominant vessel. The proximal circumflex appeared to be angiographically normal. The mid circumflex is normal and gives rise to an OM1 which appeared to be angiographically normal. The circumflex distally appeared to be normal. 4. The ramus intermedius has mild to moderate disease in the proximal portion. The disease appeared to be in the range of 30% to 40%. 5. The left anterior descending artery. The proximal LAD appeared to have mild plaque. It gives rise to the first diagonal branch, which is a large-caliber vessel with a lesion that appeared to be in the range of 40%. The LAD in the mid and distal portions appeared to be angiographically normal. HEMODYNAMICS: The aortic valve was not crossed. PERCUTANEOUS CORONARY INTERVENTION OF THE RIGHT CORONARY ARTERY: Anticoagulation was initiated using Angiomax. Subsequently I did engage the right coronary artery using JR4 guide. I did wire the RCA using a Whisper wire. I did after that PTCA ballooning using 3.5 x 12 mm balloon before I deployed a 3.5 x 18 mm Xience ALEJANDRO where the stent was positioned under fluoroscopic guidance and deployed under 20 atmospheres for 20 seconds, with the following angiogram showing excellent angiographic results. The procedure was completed without any complication. CONCLUSION: 1. Critical disease involving the mid RCA. 2. Successful stenting of the mid RCA using a 3.5 x 18 mm Xience ALEJANDRO with an excellent angiographic result and reduction of stenosis from 99% to 0%. 3. Mild to moderate nonobstructive disease involving the ramus intermedius. 4. Mild to moderate nonobstructive disease involving the first diagonal of the LAD. POST-PROCEDURE MANAGEMENT: 1. Dual anti-platelet therapy. 2. Risk factor modifications. 3. Aggressive cholesterol control. 4. Follow up with the patient. MMODL / IJN: [id number] /
[2019-09-23] MEDS ORDERED: ACETAMINOPHEN TAB 325 MG TAB ONE (18:02)
[2019-09-23] MEDS ORDERED: ACETAMINOPHEN TAB 325 MG TAB PO PRN (18:03)
[2019-09-23 18:29] VITALS: RESP 18
[2019-09-24 06:53] LABS: African American GFR (CKD) >90 (>60 ml/min/1.73 sqM); Non-African American GFR(CKD) 82 (>60 ml/min/1.73 sqM)
[2019-09-24] MEDS: ATORVASTATIN 40 MG TAB PO SCH ×2 (08:59→09:02)
[2019-09-24] MEDS: PRASUGREL 10 MG TAB PO SCH ×2 (08:59→09:02)
[2019-09-24] MEDS: ASPIRIN 81 MG PO SCH ×2 (08:59→09:03)
[2019-09-24] MEDS: METOPROLOL SUCCINATE (ER) 25 MG TAB.ER.24H PO SCH ×2 (08:59→09:03)
[2019-09-24] MEDS: LISINOPRIL 2.5 MG TAB PO SCH ×2 (08:59→09:03)
[2019-09-24 11:22] VITALS: BMI 39.2
[2019-09-24 12:06] VITALS: BP 137/87; PULSE 67; TEMP 97.4
--- NOTE | 2019-09-24 12:14 | P.PN ---
Subjective Progress Note Date: 09/24/19 This is a pleasant 58-year-old male past medical history significant for obstructive sleep apnea. Presented to the hospital with symptoms of chest discomfort. Patient was taken to the cardiac catheterization lab year yesterday where he underwent angioplasty with stenting of the LAD. He was seen and examined this morning, denied any chest pain, no difficulty in breathing. Hemodynamically stable. Blood pressure 112/74, heart rate in the 60s to 80s, 96% on room air. Creatinine this morning 1.0. Cholesterol 189, LDL 1:15, HDL 35, triglycerides 193. EKG from this morning showed a normal sinus rhythm with no acute changes from post-PCI. Objective - Vital Signs Vital signs: Vital Signs Temp 97.6 F 09/24/19 08:00 Pulse 85 09/24/19 08:00 Resp 18 09/24/19 08:00 BP 112/74 09/24/19 08:00 Pulse Ox 96 09/24/19 08:00 Intake & Output 09/23/19 09/24/19 09/24/19 18:59 06:59 18:59 Intake Total 459 600 225 Output Total 350 Balance 459 250 225 Weight 116.9 kg 116.9 kg Intake: IV 459 Sodium Chloride 0.9% 1, 225 000 ml @ 75 mls/hr IV . [id number] [facility] Rx#:[id number] Intake, IV Titration 600 Amount Sodium Chloride 0.9% 1, 600 000 ml @ 75 mls/hr IV . [id number] [facility] Rx#:[id number] Oral 225 Output: Urine 350 Urine/Stool Mix 0 Other: Voiding Method Toilet Toilet Toilet # Voids 1 # Bowel Movements 0 - Exam CONSTITUTIONAL: No apparent distress. HEENT: Head is normocephalic. Pupils are equal, round. Sclerae anicteric. Mucous membranes of the mouth are moist. No JVD. No carotid bruit. CHEST EXAMINATION: Lungs are clear to auscultation. No chest wall tenderness is noted on palpation or with deep breathing. HEART EXAMINATION: Regular rate and rhythm. S1, S2 heard. No murmurs, gallops or rub. ABDOMEN: Soft, nontender. Positive bowel sounds. EXTREMITIES: 2+ peripheral pulses, no lower extremity edema and no calf tenderness. Right radial site clean and dry, good distal pulse. NEUROLOGIC EXAMINATION: Patient is awake, alert and oriented x3. - Labs CBC & Chem 7: 09/23/19 06:42 09/24/19 05:46 Assessment and Plan Plan: Assessment and plan #1 Unstable angina, status post angioplasty and stenting of the LAD #2 Dyslipidemia #3 Obstructive sleep apnea #4 Family history of premature coronary artery disease, father had cardiac event in his 40s. #5 Obesity, BMI 39 Plan Echocardiogram with Doppler study was reviewed which revealed a normal left ventricular systolic function. The patient may be able to be discharged home today from our perspective, we'll make him a follow-up appointment to see in the office post discharge. Patient has been instructed not to go and play pool tomorrow, he was also scheduled to go snowmobiling this weekend which we have asked him to defer for one week. He will be discharged home on aspirin 81 mg daily, his Lipitor will be increased to 80 mg daily, patient's LDL is 115, lisinopril 2.5 mg daily, metoprolol 12-1/2 mg daily, Effient 10 mg daily, sublingual nitroglycerin as needed for chest pain. DNP note has been reviewed, I agree with a documented findings and plan of care. Patient was seen and examined.
--- NOTE | 2019-09-24 13:10 | P.HPIM ---
History of Present Illness Please consider this is combined H&P and discharge summary Diagnoses: Chest pain, cardiac causes rule out negative coronary angiogram hospital course This is a pleasant 58 years old male with no significant past medical history, he has some sleep apnea on CPAP/BiPAP. He presents because of progressive exertional dyspnea over several months, 30 could not tolerate his workup for 2 minutes so he decided to come to the hospital. He denied chest pain or dizziness. No smoking alcohol or illicit tracts. He is hemodynamically stable, is afebrile, saturating 95% room air. Labs were reviewed including CBC, BMP, liver enzymes and INR and they were unremarkable, serial troponins are negative, d-dimer is negative at 0.39, chest x-ray: Diffuse peribronchial coughing and interstitial prominence. Garlic for bronchitis, asth ma or atypical pneumonias. EKG showing normal sinus rhythm at 65 with QTC 382 Patient has been evaluated by breakfast supervisor and he underwent cardiac cath was showing critical disease, patient status post stent of mid right coronary artery, also he had beur-am-[id number] disease of the ramus intermedius and mild to moderate disease of LAD. Patient was started on aspirin and effient, and the importance of adherence to therapy is explained to the patient and he understands This morning patient is asymptomatic, no chest pain or dyspnea, no abdominal pain, didn't have bowel movement but is passing gases, he is voiding with no problems. No dizziness Patient was cleared for discharge by breakfast supervisor problems and management plan were discussed with the patient and he verbalized understanding and acceptance Patient was found stable and can be discharged home however he needs follow-up as an outpatient. Patient was instructed to follow up with PCP within one week and patient agrees, pt is going to a new pcp ,he told me his has his name and contact information and he will call and make appointment , also he agrees with appointment with on [birth year] ( [birth year]) and states he will f ollow up i went over with script with him and it was sent by cardiology team to the pharmacy CONSTITUTIONAL: No fever, no malaise, no fatigue. HEENT: No recent visual problems or hearing problems. Denied any sore throat. CARDIOVASCULAR: No orthopnea, PND, no palpitations, no syncope. PULMONARY: No shortness of breath, no cough, no hemoptysis. GASTROINTESTINAL: No diarrhea, no nausea, no vomiting, no abdominal pain. Normoactive bowel sounds. NEUROLOGICAL: No headaches, no weakness, no numbness. HEMATOLOGICAL: Denies any bleeding or petechiae. GENITOURINARY: Denies any burning micturition, frequency, or urgency. MUSCULOSKELETAL/RHEUMATOLOGICAL: Denies any joint pain, swelling, or any muscle pain. ENDOCRINE: Denies any polyuria or polydipsia. Gen: patient is a AAOx3, no distress CVS: S1-S2, RRR, no murmur Lungs: B/L CTA, no wheezing Abdomen: soft, no distention, no tenderness, positive bowel sounds Extremity: no leg edema or induration Time spent more than 35 minutes Past Medical History Past Medical History: Sleep Apnea/CPAP/BIPAP Additional Past Medical History / Comment(s): varicose veins, uses CPAP History of Any Multi-Drug Resistant Organisms: None Reported Past Surgical History: Appendectomy, Joint Replacement, Orthopedic Surgery Additional Past Surgical History / Comment(s): nasal surgery, rt shoulder surgery, left knee arthroscopy, left knee replaced Past Anesthesia/Blood Transfusion Reactions: Previous Problems w/ Anesthesia, Motion Sickness Additional Past Anesthesia/Blood Transfusion Reaction / Comment(s): previous knee arthroscopy - "stopped breathing - irregular heartrate"-no problems total knee Past Psychological History: No Psychological Hx Reported Smoking Status: Never smoker Past Alcohol Use History: None Reported Past Drug Use History: None Reported - Past Family History Mother Family Medical History: Dementia Father Family Medical History: Myocardial Infarction (SD) Brother(s) Family Medical History: No Reported History (Patient had one brother who at age of 80 from suicide.) Additional Family Medical History / Comment(s): suicide Sister(s) Family Medical History: No Reported History (Patient had a sister who as an infant due to SIDS) Additional Family Medical History / Comment(s): SIDS Daughter(s) Family Medical History: No Reported History Son(s) Family Medical History: No Reported History Medications and Allergies Home Medications Medication Instructions Recorded Confirmed Type Atorvastatin [Lipitor] 40 mg PO DAILY #30 tab 09/23/19 Rx Aspirin 81 mg PO DAILY #30 chew 09/24/19 Rx Atorvastatin [Lipitor] 80 mg PO DAILY #30 tab 09/24/19 Rx Lisinopril [Zestril] 2.5 mg PO DAILY #30 tab 09/24/19 Rx Metoprolol Succinate (ER) [Toprol 12.5 mg PO DAILY #30 tab.er.24h 09/24/19 Rx XL] Nitroglycerin Sl Tabs [Nitrostat] 0.4 mg SUBLINGUAL Q5M PRN #25 tab 09/24/19 Rx Prasugrel [Effient] 10 mg PO DAILY #30 tab 09/24/19 Rx Allergies Allergy/AdvReac Type Severity Reaction Status Date / Time No Known Allergies Allergy Verified 09/22/19 22:47 Physical Exam Vitals: Vital Signs Temp Pulse Pulse Resp BP Pulse Ox 09/24/19 04:00 97.7 F 64 18 119/78 96 09/24/19 03:22 62 18 09/24/19 00:00 97.7 F 64 18 134/79 94 L 09/23/19 20:00 97.5 F L 61 18 121/73 96 09/23/19 18:37 97.9 F 65 18 155/96 96 09/23/19 18:28 97.9 F 65 18 155/96 96 09/23/19 17:57 67 16 135/85 97 09/23/19 16:50 70 18 142/72 94 L 09/23/19 16:20 71 18 146/70 95 09/23/19 15:51 58 L 18 118/72 95 09/23/19 15:37 58 L 18 118/65 98 09/23/19 15:22 60 18 115/72 97 09/23/19 15:07 62 18 125/78 95 09/23/19 11:25 97.5 F L 61 18 117/76 95 Intake and Output 09/23/19 09/24/19 09/24/19 22:59 06:59 14:59 Intake Total 225 600 Output Total 0 350 Balance 225 250 Intake: IV 225 Sodium Chloride 0.9% 1, 225 000 ml @ 75 mls/hr IV . [id number] [facility] Rx#:[id number] Intake, IV Titration 600 Amount Sodium Chloride 0.9% 1, 600 000 ml @ 75 mls/hr IV . [id number] [facility] Rx#:[id number] Output: Urine 0 350 Urine/Stool Mix 0 Other: Voiding Method Toilet Toilet # Voids 1 # Bowel Movements 0 Weight 116.9 kg Results CBC & Chem 7: 09/23/19 06:42 09/24/19 05:46 Thrombosis Risk Factor Assmnt - Choose All That Apply Any of the Below Risk Factors Present?: Yes Each Factor Represents 1 point: Age 41-60 years, Obesity (BMI >25), Swollen legs (current) Other Risk Factors: No Other congenital or acquired thrombophilia - If yes, enter type in comment: No Thrombosis Risk Factor Assessment Total Risk Factor Score: 3 Thrombosis Risk Factor Assessment Level: Moderate Risk
[2019-09-25] MEDS ORDERED: ATORVASTATIN 80 MG TAB PO SCH (09:00)
--- NOTE | 2019-09-26 11:41 | CDI ---
Documentation Clarification Form Date: 09/26/19 From: Neelima York Phone: If you have a question about this query, please contact Lamar Calvin, Assistant Customer Service Manager at [phone] between 8am and 5pm. Admit Date: 09/24/19 Discharge Date:09/24/19 Patient Name: Ector Ferguson Visit Number: [id number] ATTENTION: The Clinical Documentation Specialists (CDI) and [facility] Coding Staff appreciate your assistance in clarifying documentation. Please respond to the clarification below the line at the bottom and electronically sign. The CDI & [facility] Coding staff will review the response and follow-up if needed. Please note: Queries are made part of the Legal Health Record. If you have any questions, please contact the author of this message via ITS. Dear Dr. Alonzo Chest pain is documented in the ED note and the H&P. Unstable angina is documented in the cardiology consult note and 09/24 progress note. Patient C/O: Chest pain and shortness of breath History/Risk factors: Hyperlipidemia, obesity, CAD Clinical Indicators: Chest pain and shortness of breath Labs: BNP 32, Treatment: Angiogram with drug eluting stent to the mid RCA In your professional opinion, can please clarify if the chest pain signifies, or is due to: CAD with angina (specify vessel and type of angina if known) Chest wall pain Unstable angina Other condition, please specify Unable to determine Unstable angina MTDD
== END 2019-09-24 14:36 | disposition home or self-care (01) ==
LOC: EC 17:43 → 1SOBS 21:02 → 3SCARD 09-23 17:07 → OBSVTOIN 09-24 11:07 → INTOOBSV 09-24 11:07 → UNDODISIN 09-24 14:36
PROVIDERS: ADMIT Hospitalist; ATTEND Hospitalist
PROC: 027034Z Dilation of Coronary Artery, One Artery with Drug-eluting Intraluminal Device, Percutaneous Approach (ICD-10-PCS; principal; 2019-09-23 12:35)
PROC: B2111ZZ Fluoroscopy of Multiple Coronary Arteries using Low Osmolar Contrast (ICD-10-PCS; principal; 2019-09-23 12:35)
DX: I25.110 Atherosclerotic heart disease of native coronary artery with unstable angina pectoris (principal); E66.9 Obesity, unspecified; E78.5 Hyperlipidemia, unspecified; G47.33 Obstructive sleep apnea (adult) (pediatric); I44.0 Atrioventricular block, first degree; I83.90 Asymptomatic varicose veins of unspecified lower extremity; M19.90 Unspecified osteoarthritis, unspecified site; Z68.39 Body mass index [BMI] 39.0-39.9, adult; Z79.02 Long term (current) use of antithrombotics/antiplatelets; Z79.82 Long term (current) use of aspirin; Z79.899 Other long term (current) drug therapy; Z90.49 Acquired absence of other specified parts of digestive tract; Z96.60 Presence of unspecified orthopedic joint implant; Z82.49 Family history of ischemic heart disease and other diseases of the circulatory system; Z81.8 Family history of other mental and behavioral disorders; Z83.3 Family history of diabetes mellitus
CPT/HCPCS: 93005 ×3; 96366 ×2; 96376 ×2; 96365; 99291; 36415; 93306; 93458; 85379; 83880; 80061; 80053; 82565; 83690; 83735; 84484 ×2; 85025; 85049; 85610; 85730 ×2; 71046; G0378 ×4; C9600; C1769 ×2; C1887; C1725; C1874; C1894; J2250; J1644 ×3; J2001; J3010; J0583; Q9967

== ENCOUNTER 2020-02-15 21:12 | Emergency (ER) | payer BC ==
[2020-02-15 21:18] VITALS: RESP 18; TEMP 97.9
[2020-02-15] MEDS ORDERED: SODIUM CHLORIDE 0.9% 1,000 ML IV STA (21:35)
--- NOTE | 2020-02-15 21:40 | ED ---
General Adult HPI - General Chief complaint: Weakness Stated complaint: body cramping Time Seen by Provider: 02/15/20 21:19 Source: patient Mode of arrival: ambulatory Limitations: no limitations - History of Present Illness Initial comments: 59-year-old male patient presents to the emergency department today for evaluation of generalized weakness and muscle cramping. Patient states that for the last week he has been having cramping to his legs, and arms. Patient states he'll move a certain way in the muscles will lock up on him. He states that he had a stent placed and started 5 new medications and August of this year. States that initially everything was fine and then he started feeling generally rundown, agitated, [place] he is having muscle wasting. Patient states he hasn't been working out but feels like he is losing weight. He states he just doesn't feel right. Denies any chest pain, shortness of breath, nausea, vomiting. Denies any constipation or diarrhea. Denies any use of herbal supplements. Patient denies any recent rash, fever, chills, cough, back pain, numbness, tingling, dizziness, hematuria, dysuria, urinary urgency, urinary frequency, headache, visual changes, or any other complaints. - Related Data Previous Rx's Medication Instructions Recorded Aspirin 81 mg PO DAILY #30 chew 09/24/19 Atorvastatin [Lipitor] 80 mg PO DAILY #30 tab 09/24/19 Lisinopril [Zestril] 2.5 mg PO DAILY #30 tab 09/24/19 Metoprolol Succinate (ER) [Toprol 12.5 mg PO DAILY #30 tab.er.24h 09/24/19 XL] Nitroglycerin Sl Tabs [Nitrostat] 0.4 mg SUBLINGUAL Q5M PRN #25 tab 09/24/19 Prasugrel [Effient] 10 mg PO DAILY #30 tab 09/24/19 Allergies Allergy/AdvReac Type Severity Reaction Status Date / Time No Known Allergies Allergy Verified 02/15/20 21:18 Review of Systems ROS Statement: Those systems with pertinent positive or pertinent negative responses have been documented in the HPI. ROS Other: All systems not noted in ROS Statement are negative. Past Medical History Past Medical History: Sleep Apnea/CPAP/BIPAP Additional Past Medical History / Comment(s): varicose veins, uses CPAP History of Any Multi-Drug Resistant Organisms: None Reported Past Surgical History: Appendectomy, Joint Replacement, Orthopedic Surgery Additional Past Surgical History / Comment(s): nasal surgery, rt shoulder surgery, left knee arthroscopy, left knee replaced Past Anesthesia/Blood Transfusion Reactions: Previous Problems w/ Anesthesia, Motion Sickness Additional Past Anesthesia/Blood Transfusion Reaction / Comment(s): previous knee arthroscopy - "stopped breathing - irregular heartrate"-no problems total knee Past Psychological History: No Psychological Hx Reported Past Alcohol Use History: None Reported Past Drug Use History: None Reported - Past Family History Mother Family Medical History: Dementia Father Family Medical History: Myocardial Infarction ([place]) Brother(s) Family Medical History: No Reported History (Patient had one brother who at age of 80 from suicide.) Additional Family Medical History / Comment(s): suicide Sister(s) Family Medical History: No Reported History (Patient had a sister who as an infant due to SIDS) Additional Family Medical History / Comment(s): SIDS Daughter(s) Family Medical History: No Reported History Son(s) Family Medical History: No Reported History General Exam Limitations: no limitations General appearance: alert, in no apparent distress, other (This is a well- developed, well-nourished adult male patient in no acute distress. Vital signs upon presentation are temperature 97.9F, pulse 62, respirations 18, blood pressure 132/82, pulse ox 99% on room air.) Eye exam: Present: normal appearance, PERRL, EOMI. Absent: scleral icterus, conjunctival injection, periorbital swelling ENT exam: Present: normal exam, normal oropharynx, mucous membranes moist Respiratory exam: Present: normal lung sounds bilaterally. Absent: respiratory distress, wheezes, rales, rhonchi, stridor Cardiovascular Exam: Present: regular rate, normal rhythm, normal heart sounds. Absent: systolic murmur, diastolic murmur, rubs, gallop, clicks GI/Abdominal exam: Present: soft, normal bowel sounds. Absent: distended, te nderness, guarding, rebound, rigid Neurological exam: Present: alert, oriented X3, CN II-XII intact Psychiatric exam: Present: normal affect, normal mood Skin exam: Present: warm, dry, intact, normal color. Absent: rash Course Vital Signs 07/19/20 07/19/20 21:13 22:10 Temperature 97.9 F Pulse Rate 62 60 Respiratory 18 18 Rate Blood Pressure 132/82 119/77 O2 Sat by Pulse 99 96 Oximetry EKG Findings - EKG Comments: EKG Findings:: EKG obtained at 2148 shows sinus rhythm with a first-degree AV block, left axis deviation. Ventricular rate 60, parent will to 18, QRS duration 106, QT 408, QTC 408. No evidence of ST elevation or depression. Medical Decision Making - Medical Decision Making 59-year-old male patient presents to the emergency department today for evaluation of generalized weakness, aches, and muscle cramping. Patient says his been going on for the last several days. Physical examination is unremarkable. Labs reviewed and reveal elevated TSH, low normal T4. Patient did recently start several new medications including lipitor. EKG showed normal sinus rhythm with 1st degree AV block. I did discuss results with the patient. Discussed that lipitor and hypothyroid may be contributing to symptoms. 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 Return parameters were discussed in detail. He verbalizes understanding and agrees with this plan. - Lab Data Result diagrams: 02/15/20 22:00 02/15/20 22:00 Lab Results 02/15/20 02/15/20 02/15/20 Range/Units 22:00 22:00 22:00 WBC 8.7 (3.8-10.6) k/uL RBC 5.07 (4.30-5.90) m/uL Hgb 14.3 (13.0-17.5) gm/dL Hct 43.4 (39.0-53.0) % MCV 85.6 (80.0-100.0) fL MCH 28.1 (25.0-35.0) pg MCHC 32.8 (31.0-37.0) g/dL RDW 13.3 (11.5-15.5) % Plt Count 214 (150-450) k/uL Neutrophils % 66 % Lymphocytes % 20 % Monocytes % 6 % Eosinophils % 3 % Basophils % 1 % Neutrophils # 5.8 (1.3-7.7) k/uL Lymphocytes # 1.7 (1.0-4.8) k/uL Monocytes # 0.5 (0-1.0) k/uL Eosinophils # 0.3 (0-0.7) k/uL Basophils # 0.1 (0-0.2) k/uL PT 9.5 (9.0-12.0) sec INR 0.9 (<1.2) APTT 22.8 (22.0-30.0) sec Sodium 135 L (137-145) mmol/L Potassium 3.8 (3.5-5.1) mmol/L Chloride 105 (98-107) mmol/L Carbon Dioxide 22 (22-30) mmol/L Anion Gap 8 mmol/L BUN 19 (9-20) mg/dL Creatinine 0.84 (0.66-1.25) mg/dL Est GFR (CKD-EPI)AfAm >90 (>60 ml/min/1.73 sqM) Est GFR (CKD-EPI)NonAf >90 (>60 ml/min/1.73 sqM) Glucose 149 H (74-99) mg/dL Plasma Lactic Acid Jason (0.7-2.0) mmol/L Calcium 8.7 (8.4-10.2) mg/dL Magnesium 2.2 (1.6-2.3) mg/dL Total Bilirubin 0.4 (0.2-1.3) mg/dL AST 23 (17-59) U/L ALT 22 (4-49) U/L Alkaline Phosphatase 117 (38-126) U/L Creatine Kinase (55-170) U/L Troponin I (0.000-0.034) ng/mL Total Protein 6.2 L (6.3-8.2) g/dL Albumin 4.2 (3.5-5.0) g/dL TSH 6.670 H (0.465-4.680) mIU/L Free T4 0.78 (0.78-2.19) ng/dL Urine Color Urine Appearance (Clear) Urine pH (5.0-8.0) Ur Specific [place] (1.001-1.035) Urine Protein (Negative) Urine Glucose (UA) (Negative) Urine Ketones (Negative) Urine Blood (Negative) Urine Nitrite (Negative) Urine Bilirubin (Negative) Urine Urobilinogen (<2.0) mg/dL Ur Leukocyte Esterase (Negative) 02/15/20 02/15/20 02/15/20 Range/Units 22:00 22:00 22:00 WBC (3.8-10.6) k/uL RBC (4.30-5.90) m/uL Hgb (13.0-17.5) gm/dL Hct (39.0-53.0) % MCV (80.0-100.0) fL MCH (25.0-35.0) pg MCHC (31.0-37.0) g/dL RDW (11.5-15.5) % Plt Count (150-450) k/uL Neutrophils % % Lymphocytes % % Monocytes % % Eosinophils % % Basophils % % Neutrophils # (1.3-7.7) k/uL Lymphocytes # (1.0-4.8) k/uL Monocytes # (0-1.0) k/uL Eosinophils # (0-0.7) k/uL Basophils # (0-0.2) k/uL PT (9.0-12.0) sec INR (<1.2) APTT (22.0-30.0) sec Sodium (137-145) mmol/L Potassium (3.5-5.1) mmol/L Chloride (98-107) mmol/L Carbon Dioxide (22-30) mmol/L Anion Gap mmol/L BUN (9-20) mg/dL Creatinine (0.66-1.25) mg/dL Est GFR (CKD-EPI)AfAm (>60 ml/min/1.73 sqM) Est GFR (CKD-EPI)NonAf (>60 ml/min/1.73 sqM) Glucose (74-99) mg/dL Plasma Lactic Acid Jason 1.5 (0.7-2.0) mmol/L Calcium (8.4-10.2) mg/dL Magnesium (1.6-2.3) mg/dL Total Bilirubin (0.2-1.3) mg/dL AST (17-59) U/L ALT (4-49) U/L Alkaline Phosphatase (38-126) U/L Creatine Kinase 116 (55-170) U/L Troponin I <0.012 (0.000-0.034) ng/mL Total Protein (6.3-8.2) g/dL Albumin (3.5-5.0) g/dL TSH (0.465-4.680) mIU/L Free T4 (0.78-2.19) ng/dL Urine Color Urine Appearance (Clear) Urine pH (5.0-8.0) Ur Specific [place] (1.001-1.035) Urine Protein (Negative) Urine Glucose (UA) (Negative) Urine Ketones (Negative) Urine Blood (Negative) Urine Nitrite (Negative) Urine Bilirubin (Negative) Urine Urobilinogen (<2.0) mg/dL Ur Leukocyte Esterase (Negative) 02/15/20 Range/Units 22:41 WBC (3.8-10.6) k/uL RBC (4.30-5.90) m/uL Hgb (13.0-17.5) gm/dL Hct (39.0-53.0) % MCV (80.0-100.0) fL MCH (25.0-35.0) pg MCHC (31.0-37.0) g/dL RDW (11.5-15.5) % Plt Count (150-450) k/uL Neutrophils % % Lymphocytes % % Monocytes % % Eosinophils % % Basophils % % Neutrophils # (1.3-7.7) k/uL Lymphocytes # (1.0-4.8) k/uL Monocytes # (0-1.0) k/uL Eosinophils # (0-0.7) k/uL Basophils # (0-0.2) k/uL PT (9.0-12.0) sec INR (<1.2) APTT (22.0-30.0) sec Sodium (137-145) mmol/L Potassium (3.5-5.1) mmol/L Chloride (98-107) mmol/L Carbon Dioxide (22-30) mmol/L Anion Gap mmol/L BUN (9-20) mg/dL Creatinine (0.66-1.25) mg/dL Est GFR (CKD-EPI)AfAm (>60 ml/min/1.73 sqM) Est GFR (CKD-EPI)NonAf (>60 ml/min/1.73 sqM) Glucose (74-99) mg/dL Plasma Lactic Acid Jason (0.7-2.0) mmol/L Calcium (8.4-10.2) mg/dL Magnesium (1.6-2.3) mg/dL Total Bilirubin (0.2-1.3) mg/dL AST (17-59) U/L ALT (4-49) U/L Alkaline Phosphatase (38-126) U/L Creatine Kinase (55-170) U/L Troponin I (0.000-0.034) ng/mL Total Protein (6.3-8.2) g/dL Albumin (3.5-5.0) g/dL TSH (0.465-4.680) mIU/L Free T4 (0.78-2.19) ng/dL Urine Color Yellow Urine Appearance Clear (Clear) Urine pH 6.0 (5.0-8.0) Ur Specific [place] 1.022 (1.001-1.035) Urine Protein Negative (Negative) Urine Glucose (UA) Negative (Negative) Urine Ketones Negative (Negative) Urine Blood Negative (Negative) Urine Nitrite Negative (Negative) Urine Bilirubin Negative (Negative) Urine Urobilinogen 2.0 (<2.0) mg/dL Ur Leukocyte Esterase Negative (Negative) - Radiology Data Radiology results: report reviewed, image reviewed Two-view x-ray of the chest is obtained. Report was reviewed in its entirety. Impression by Dr. Domingo shows normal chest. No significant change. Disposition Clinical Impression: Muscle cramping, Weakness Disposition: HOME SELF-CARE Condition: Good Instructions (If sedation given, give patient instructions): Hypothyroidism (ED), Weakness (ED), Muscle Cramp (ED) Additional Instructions: Follow up with your primary care physician to discuss medications and your thyroid function. Return to the emergency department for any new, worsening, or concerning symptoms. Is patient prescribed a controlled substance at d/c from ED?: No Referrals: Haim Adams MD [Primary Care Provider] - 1-2 days Time of Disposition: 00:17
--- NOTE | 2020-02-15 22:04 | XR ---
EXAMINATION TYPE: XR chest 2V DATE OF EXAM: 02/15/2020 COMPARISON: 09/22/2019 HISTORY: Weakness TECHNIQUE: FINDINGS: Heart and mediastinum are normal. Lungs are clear. Diaphragm is normal. Bony thorax is norm al. Pulmonary vascularity is normal. IMPRESSION: Normal chest. No significant change.
[2020-02-15 22:08] LABS: Basophils # (A) 0.1 k/uL (0-0.2); Basophils % (A) 1 %; Eosinophils # (A) 0.3 k/uL (0-0.7); Eosinophils % (A) 3 %; HCT 43.4 % (39.0-53.0); HGB 14.3 gm/dL (13.0-17.5); Lymphocytes # (A) 1.7 k/uL (1.0-4.8); Lymphocytes % (A) 20 %; MCH 28.1 pg (25.0-35.0); MCHC 32.8 g/dL (31.0-37.0); MCV 85.6 fL (80.0-100.0); Mean Platelet Volume 6.9; Monocytes # (A) 0.5 k/uL (0-1.0); Monocytes % (A) 6 %; Neutrophils # (A) 5.8 k/uL (1.3-7.7); Neutrophils % (A) 66 %; Platelet Count 214 k/uL (150-450); RBC 5.07 m/uL (4.30-5.90); RDW 13.3 % (11.5-15.5); WBC 8.7 k/uL (3.8-10.6)
[2020-02-15 22:16] LABS: INR 0.9 (<1.2); Partial Thromboplastin Time 22.8 sec (22.0-30.0); Prothrombin Time 9.5 sec (9.0-12.0)
[2020-02-15 22:19] LABS: ALT 22 U/L (4-49); AST 23 U/L (17-59); African American GFR (CKD) >90 (>60 ml/min/1.73 sqM); Albumin 4.2 g/dL (3.5-5.0); Alkaline Phosphatase 117 U/L (38-126); Anion Gap 8 mmol/L; Blood Urea Nitrogen 19 mg/dL (9-20); Calcium 8.7 mg/dL (8.4-10.2); Carbon Dioxide 22 mmol/L (22-30); Chloride 105 mmol/L (98-107); Glucose 149 mg/dL (74-99); Magnesium 2.2 mg/dL (1.6-2.3); Non-African American GFR(CKD) >90 (>60 ml/min/1.73 sqM); Potassium 3.8 mmol/L (3.5-5.1); Sodium 135 mmol/L (137-145); Total Bilirubin 0.4 mg/dL (0.2-1.3); Total Protein 6.2 g/dL (6.3-8.2)
[2020-02-15 22:53] LABS: Appearance,Urine Clear (Clear); Bilirubin,Urine Negative (Negative); Blood,Urine Negative (Negative); Color,Urine Yellow; Glucose,Urine (UA) Negative (Negative); Ketones,Urine Negative (Negative); Leukocyte Esterase,Urine Negative (Negative); Nitrite,Urine Negative (Negative); Protein,Urine Negative (Negative); Specific Gravity,Urine 1.022 (1.001-1.035)
[2020-02-15 23:32] LABS: T4, Free (Free Thyroxine) 0.78 ng/dL (0.78-2.19)
[2020-02-16 00:36] VITALS: BP 115/74; PULSE 62
== END 2020-02-16 00:35 | disposition home or self-care (01) ==
LOC: EC 21:12
DX: R53.1 Weakness (principal); R25.2 Cramp and spasm; R79.89 Other specified abnormal findings of blood chemistry; I44.0 Atrioventricular block, first degree; G47.30 Sleep apnea, unspecified; Z99.89 Dependence on other enabling machines and devices; Z96.652 Presence of left artificial knee joint
CPT/HCPCS: 36415; 71046; 80053; 81003; 82550; 83605; 83735; 84439; 84443; 84484; 85025; 85610; 85730; 93005; 96360; 96361; 99285

== ENCOUNTER → 2020-10-15 | Outpatient (CLI) | payer BC ==
[2020-10-15 16:55] LABS: Hemoglobin A1C 6.1 % (4.0-6.0)
== END | disposition home or self-care (01) ==
LOC: LABWHC1 09:13
PROVIDERS: ATTEND Internal Medicine Sleep Medicine
DX: E11.9 Type 2 diabetes mellitus without complications (principal)
CPT/HCPCS: 36415; 82947; 83036

== ENCOUNTER 2021-08-13 13:44 | Emergency (ER) | payer BC ==
[2021-08-13 13:52] VITALS: RESP 18
[2021-08-13] MEDS ORDERED: ACETAMINOPHEN TAB 500 MG TAB PO STA (14:21)
--- NOTE | 2021-08-13 14:24 | ED ---
General Adult HPI - General Chief complaint: Shortness of Breath Stated complaint: Low oxygen-Sent by Dr. German Time Seen by Provider: 08/13/21 14:01 Source: patient Mode of arrival: ambulatory Limitations: no limitations - History of Present Illness Initial comments: Dictation was produced using [employer]Jam dictation software. please excuse any grammatical, word or spelling errors. Chief Complaint: 60-year-old male past nuchal history of sleep apnea and recent positive test for COVID-19 presents to the emergency department with hypoxia and worsening shortness of breath. History of Present Illness: She is 60-year-old male he is tested positive for Covid recently. He's been symptomatically for the last 8 days. Yesterday patient got monoclonal Antibodies. Today patient has been having worsening shortness of breath. Patient walked several steps and noticed that that he was significantly short of breath. He checked his oxygen at home which was in the mid to low 80s for several minutes. They called primary care physician's office and spoke Dr. German. Patient was instructed to come to the emergency department. At rest patient does not feel significantly winded. He states that shortness of breath has been getting worse special with less steps. Patient has pleuritic chest pain that radiates to his back. The ROS documented in this emergency department record has been reviewed and confirmed by me. Those systems with pertinent positive or negative responses have been documented in the HPI. All other systems are other negative and/or noncontributory. PHYSICAL EXAM: General Impression: Alert and oriented x3, not in acute distress HEENT: Normocephalic atraumatic, extra-ocular movements intact, pupils equal and reactive to light bilaterally, mucous membranes moist. Cardiovascular: Heart regular rate and rhythm Chest: Able to complete full sentences, no retractions, no tachypnea Abdomen: abdomen soft, non-tender, non-distended, no organomegaly Musculoskeletal: Pulses present and equal in all extremities, no peripheral edema Motor: no focal deficits noted Neurological: CN II-XII grossly intact, no focal motor or sensory deficits noted Skin: Intact with no visualized rashes Psych: Normal affect and mood ED course: 60-year-old male presents to the emergency Department for hypoxia at home and worsening dyspnea. Vital signs upon arrival shows temperature 100.1, 91% on room air. At the bedside at rest he is satting well at 94-96%. ambulatory pulse ox was maintained above 90% after several steps around the emergency department. EKG interpretation: Ventricular rate 80, normal sinus rhythm, MD interval 174, QRS 88, QTc 440. No MD prolongation, no QTC prolongation, no ST or T-wave changes noted. Overall, this EKG is unremarkable Laboratory evaluation obtained. CBC is unremarkable. Coag panel is negative. D-dimer is elevated at 0.95 sodium is 126 with elevated BUN to creatinine ratio consistent with dehydration. Rest of labs within acceptable limits. Chest x- ray shows G airspace opacities. CT angios obtained due to elevated d-dimer to rule out pulmonary embolism. CT shows no evidence of acute pulmonary embolism. There is multifocal pneumonia consistent with COVID-19. Patient is observed in emergency department for approximately 2 hours and 30 minutes. Patient is well- appearing at the bedside. He still maintaining oxygen saturations above 90. Patient be discharged and advised follow-up with primary care doctor. Return precautions discussed. Patient and family member are agreeable with plan. - Related Data Previous Rx's Medication Instructions Recorded Aspirin 81 mg PO DAILY #30 chew 09/24/19 Atorvastatin [Lipitor] 80 mg PO DAILY #30 tab 09/24/19 Metoprolol Succinate (ER) [Toprol 12.5 mg PO DAILY #30 tab.er.24h 09/24/19 XL] Nitroglycerin Sl Tabs [Nitrostat] 0.4 mg SUBLINGUAL Q5M PRN #25 tab 09/24/19 Prasugrel [Effient] 10 mg PO DAILY #30 tab 09/24/19 lisinopriL [Zestril] 2.5 mg PO DAILY #30 tab 09/24/19 Allergies Allergy/AdvReac Type Severity Reaction Status Date / Time No Known Allergies Allergy Verified 08/13/21 13:52 Review of Systems ROS Statement: Those systems with pertinent positive or pertinent negative responses have been documented in the HPI. ROS Other: All systems not noted in ROS Statement are negative. Past Medical History Past Medical History: Sleep Apnea/CPAP/BIPAP Additional Past Medical History / Comment(s): varicose veins, uses CPAP History of Any Multi-Drug Resistant Organisms: None Reported Past Surgical History: Appendectomy, Joint Replacement, Orthopedic Surgery Additional Past Surgical History / Comment(s): nasal surgery, rt shoulder surgery, left knee arthroscopy, left knee replaced Past Anesthesia/Blood Transfusion Reactions: Previous Problems w/ Anesthesia, Motion Sickness Additional Past Anesthesia/Blood Transfusion Reaction / Comment(s): previous knee arthroscopy - "stopped breathing - irregular heartrate"-no problems total knee Past Psychological History: No Psychological Hx Reported Smoking Status: Never smoker Past Alcohol Use History: None Reported Past Drug Use History: None Reported - Past Family History Mother Family Medical History: Dementia Father Family Medical History: Myocardial Infarction ([place]) Brother(s) Family Medical History: No Reported History (Patient had one brother who at age of 80 from suicide.) Additional Family Medical History / Comment(s): suicide Sister(s) Family Medical History: No Reported History (Patient had a sister who as an infant due to SIDS) Additional Family Medical History / Comment(s): SIDS Daughter(s) Family Medical History: No Reported History Son(s) Family Medical History: No Reported History General Exam Limitations: no limitations Course Vital Signs 08/13/21 08/13/21 13:48 14:37 Temperature 100.1 F H Pulse Rate 93 72 Respiratory 18 18 Rate Blood Pressure 113/76 O2 Sat by Pulse 91 L 96 Oximetry Medical Decision Making - Lab Data Result diagrams: 08/13/21 14:25 08/13/21 14:25 Lab Results 08/13/21 08/13/21 08/13/21 Range/Units 14:25 14:25 14:25 WBC 8.8 (3.8-10.6) k/uL RBC 5.14 (4.30-5.90) m/uL Hgb 14.8 (13.0-17.5) gm/dL Hct 42.5 (39.0-53.0) % MCV 82.8 (80.0-100.0) fL MCH 28.8 (25.0-35.0) pg MCHC 34.8 (31.0-37.0) g/dL RDW 13.3 (11.5-15.5) % Plt Count 262 (150-450) k/uL MPV 7.5 Neutrophils % 83 % Lymphocytes % 9 % Monocytes % 5 % Eosinophils % 0 % Basophils % 0 % Neutrophils # 7.3 (1.3-7.7) k/uL Lymphocytes # 0.8 L (1.0-4.8) k/uL Monocytes # 0.4 (0-1.0) k/uL Eosinophils # 0.0 (0-0.7) k/uL Basophils # 0.0 (0-0.2) k/uL PT 10.4 (9.0-12.0) sec INR 1.0 (<1.2) APTT 20.8 L (22.0-30.0) sec D-Dimer 0.95 H (<0.60) mg/L FEU Sodium 126 L (137-145) mmol/L Potassium 4.1 (3.5-5.1) mmol/L Chloride 100 (98-107) mmol/L Carbon Dioxide 18 L (22-30) mmol/L Anion Gap 8 mmol/L BUN 30 H (9-20) mg/dL Creatinine 0.88 (0.66-1.25) mg/dL Est GFR (CKD-EPI)AfAm >90 (>60 ml/min/1.73 sqM) Est GFR (CKD-EPI)NonAf >90 (>60 ml/min/1.73 sqM) Glucose 118 H (74-99) mg/dL Calcium 8.0 L (8.4-10.2) mg/dL Magnesium 2.2 (1.6-2.3) mg/dL Total Bilirubin 1.9 H (0.2-1.3) mg/dL AST 60 H (17-59) U/L ALT 58 H (4-49) U/L Alkaline Phosphatase 88 (38-126) U/L Troponin I (0.000-0.034) ng/mL NT-Pro-B Natriuret Pep pg/mL Total Protein 5.9 L (6.3-8.2) g/dL Albumin 3.1 L (3.5-5.0) g/dL 08/13/21 08/13/21 Range/Units 14:25 14:25 WBC (3.8-10.6) k/uL RBC (4.30-5.90) m/uL Hgb (13.0-17.5) gm/dL Hct (39.0-53.0) % MCV (80.0-100.0) fL MCH (25.0-35.0) pg MCHC (31.0-37.0) g/dL RDW (11.5-15.5) % Plt Count (150-450) k/uL MPV Neutrophils % % Lymphocytes % % Monocytes % % Eosinophils % % Basophils % % Neutrophils # (1.3-7.7) k/uL Lymphocytes # (1.0-4.8) k/uL Monocytes # (0-1.0) k/uL Eosinophils # (0-0.7) k/uL Basophils # (0-0.2) k/uL PT (9.0-12.0) sec INR (<1.2) APTT (22.0-30.0) sec D-Dimer (<0.60) mg/L FEU Sodium (137-145) mmol/L Potassium (3.5-5.1) mmol/L Chloride (98-107) mmol/L Carbon Dioxide (22-30) mmol/L Anion Gap mmol/L BUN (9-20) mg/dL Creatinine (0.66-1.25) mg/dL Est GFR (CKD-EPI)AfAm (>60 ml/min/1.73 sqM) Est GFR (CKD-EPI)NonAf (>60 ml/min/1.73 sqM) Glucose (74-99) mg/dL Calcium (8.4-10.2) mg/dL Magnesium (1.6-2.3) mg/dL Total Bilirubin (0.2-1.3) mg/dL AST (17-59) U/L ALT (4-49) U/L Alkaline Phosphatase (38-126) U/L Troponin I <0.012 (0.000-0.034) ng/mL NT-Pro-B Natriuret Pep 45 pg/mL Total Protein (6.3-8.2) g/dL Albumin (3.5-5.0) g/dL Disposition Clinical Impression: COVID-19 Disposition: HOME SELF-CARE Condition: Fair Instructions (If sedation given, give patient instructions): Coronavirus Disease 2019 (COVID-19) Is patient prescribed a controlled substance at d/c from ED?: No Referrals: Haim Adams MD [Primary Care Provider] - 1-2 days
[2021-08-13 14:40] VITALS: PULSE 72
[2021-08-13 14:45] LABS: Basophils % (A) 0 %; Eosinophils % (A) 0 %; HCT 42.5 % (39.0-53.0); HGB 14.8 gm/dL (13.0-17.5); Lymphocytes # (A) 0.8 k/uL (1.0-4.8); Lymphocytes % (A) 9 %; MCH 28.8 pg (25.0-35.0); MCHC 34.8 g/dL (31.0-37.0); MCV 82.8 fL (80.0-100.0); Mean Platelet Volume 7.5; Monocytes # (A) 0.4 k/uL (0-1.0); Monocytes % (A) 5 %; Neutrophils # (A) 7.3 k/uL (1.3-7.7); Neutrophils % (A) 83 %; Platelet Count 262 k/uL (150-450); RBC 5.14 m/uL (4.30-5.90); RDW 13.3 % (11.5-15.5); WBC 8.8 k/uL (3.8-10.6)
[2021-08-13 14:46] LABS: ALT 58 U/L (4-49); AST 60 U/L (17-59); African American GFR (CKD) >90 (>60 ml/min/1.73 sqM); Albumin 3.1 g/dL (3.5-5.0); Alkaline Phosphatase 88 U/L (38-126); Anion Gap 8 mmol/L; Blood Urea Nitrogen 30 mg/dL (9-20); Carbon Dioxide 18 mmol/L (22-30); Chloride 100 mmol/L (98-107); Glucose 118 mg/dL (74-99); Magnesium 2.2 mg/dL (1.6-2.3); Non-African American GFR(CKD) >90 (>60 ml/min/1.73 sqM); Sodium 126 mmol/L (137-145); Total Bilirubin 1.9 mg/dL (0.2-1.3); Total Protein 5.9 g/dL (6.3-8.2)
[2021-08-13 14:49] LABS: Potassium 4.1 mmol/L (3.5-5.1)
[2021-08-13] MEDS ORDERED: SODIUM CHLORIDE 0.9% 1,000 ML IV STA (14:51)
--- NOTE | 2021-08-13 14:58 | XR ---
EXAMINATION TYPE: XR chest 1V portable DATE OF EXAM: 08/13/2021 COMPARISON: 02/15/2020 HISTORY: 60 years Male. STUDY INDICATION GIVEN: hypoxia . TECHNIQUE: AP chest radiograph IMPRESSION: There are patchy airspace opacities the inferior and peripheral aspect of both lungs appears to be gr eater on the right. Mild interstitial edema. Findings suggestive of multifocal pneumonia and mild pul monary edema. No pneumothorax or pleural effusion. The cardiomediastinal silhouette is within normal limits. No acute osseous abnormalities appreciated.
[2021-08-13 15:18] LABS: Prothrombin Time 10.4 sec (9.0-12.0)
[2021-08-13 15:19] LABS: Partial Thromboplastin Time 20.8 sec (22.0-30.0)
--- NOTE | 2021-08-13 16:12 | CT ---
EXAMINATION TYPE: CT angio chest DATE OF EXAM: 08/13/2021 3:47 PM COMPARISON: Chest radiograph from the same day. No prior CT angiogram chest at our institution. HISTORY: sob, low o2, covid CT DLP: 712.7 mGycm Automated exposure control for dose reduction was used. CONTRAST: CTA scan of the thorax is performed with IV Contrast, patient injected with 100 mL of Isovue 370, pul monary embolism protocol. . FINDINGS: Opacification of the pulmonary trunk 252 Hounsfield units. The diameter of pulmonary trunk 2.5 cm. Fi lling defects are seen in the pulmonary arteries. Thoracic aorta is normal in course and caliber. Diffuse bilateral groundglass and nodular opacities. There is no pneumothorax or pleural effusion. No Mediastinal, hilar or axillary lymphadenopathy. Tracheobronchial tree is patent. 4 mm calcified nodu le seen in the right upper lobe. The heart is not enlarged. Coronary arterial calcifications are noted. No pericardial effusion. There is a 1.3 cm low attenuating lesion in the posterior aspect of the right hepatic lobe. No acute or aggressive osseous abnormalities seen. Mild degenerative changes are seen in the thoracic and upper lumbar spine. No significant soft tissue normalities. IMPRESSION: 1. NO EVIDENCE FOR ACUTE PULMONARY ARTERY EMBOLISM. 2. MULTIFOCAL PNEUMONIA. 3. 1.3 CM LOW ATTENUATING LESION POSTERIOR ASPECT OF THE RIGHT GLOBE OF INDETERMINATE ETIOLOGY, FOLLO W-UP URGENT ABDOMEN PELVIC CT HEPATIC MASS PROTOCOL SHOULD BE CONSIDERED.
[2021-08-13] MEDS ORDERED: DEXAMETHASONE SOD PHOSPHATE 10 MG/ML 1 ML VIAL IV STA (16:20)
[2021-08-13 17:11] VITALS: BP 121/66; TEMP 98
== END 2021-08-13 16:45 | disposition home or self-care (01) ==
LOC: EC 13:44
DX: U07.1 COVID-19 (principal); Z79.82 Long term (current) use of aspirin; Z90.49 Acquired absence of other specified parts of digestive tract; Z96.652 Presence of left artificial knee joint
CPT/HCPCS: 99285; 36415; 93005; 85379; 83880; 80053; 83735; 84484; 85025; 85610; 85730; 71045; 71275; Q9967

== ENCOUNTER → 2021-09-07 | Outpatient (CLI) | payer BC ==
--- NOTE | 2021-09-08 05:51 | XR ---
EXAMINATION TYPE: XR chest 2V DATE OF EXAM: 09/07/2021 COMPARISON: CTA chest and chest x-ray August 13, 2021 and older x-rays HISTORY: Cough and chest tightness, history of covid infection 4-5 weeks ago TECHNIQUE: Frontal and lateral views of the chest are obtained. FINDINGS: There is interval improvement in scattered bilateral opacities particularly in the lower l ungs. Background mild chronic parenchymal changes remain present bilaterally. The cardiac silhouette size remains within normal limits. The osseous structures are intact. IMPRESSION: Nearly completely resolved or resolved bilateral multifocal opacities. Background mild t o moderate chronic parenchymal changes redemonstrated without new acute pulmonary process.
--- NOTE | 2021-09-08 05:53 | XR ---
EXAMINATION TYPE: XR knee complete LT DATE OF EXAM: 09/07/2021 CLINICAL HISTORY: Pain and bruising after injury 4-5 weeks ago. TECHNIQUE: Three views of the left knee are obtained. COMPARISON: Prior left knee x-ray December 07, 2015. FINDINGS: There is no acute fracture/dislocation evident in left knee. Metallic hardware from total left knee arthroplasty is redemonstrated and stable in position. New 2.0 cm well-defined ossific den sity superior to the patella to the medial anterior soft tissue suspect heterotopic ossification as n o donor site identified. Mild diffuse subcutaneous edema is now present. IMPRESSION: There is no acute fracture or dislocation in the left knee.
== END | disposition home or self-care (01) ==
LOC: RADXRMAIN 16:55
PROVIDERS: ATTEND Internal Medicine Geriatric Medicine
DX: S80.02XA Contusion of left knee, initial encounter (principal); Z86.16 Personal history of COVID-19; X58.XXXA Exposure to other specified factors, initial encounter; R91.8 Other nonspecific abnormal finding of lung field
CPT/HCPCS: 71046

== ENCOUNTER → 2022-07-28 | Outpatient (CLI) | payer BC | END | disposition home or self-care (01) | LOC: LABPAT 15:17 | PROVIDERS: ATTEND Orthopaedic Surgery | DX: Z01.812 Encounter for preprocedural laboratory examination (principal); M17.11 Unilateral primary osteoarthritis, right knee; Z22.322 Carrier or suspected carrier of Methicillin resistant Staphylococcus aureus | CPT/HCPCS: 87070 ==

== ENCOUNTER 2022-08-08 05:57 | Observation (INO) | payer BC ==
[2022-08-03 11:20] VITALS: BMI 37.5
--- NOTE | 2022-08-07 08:32 | P.HPOR ---
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 He notes pain, swelling along with giving way and locking. He has a difficult time with normal ambulation. He tried medications and injections with only partial temporary relief. Review of Systems As per HPI Past Medical History Past Medical History: Hyperlipidemia, Hypertension, Osteoarthritis (OA), Sleep Apnea/CPAP/BIPAP Additional Past Medical History / Comment(s): varicose veins, uses CPAP History of Any Multi-Drug Resistant Organisms: None Reported Past Surgical History: Appendectomy, Heart Catheterization With Stent, Joint Replacement, Orthopedic Surgery Additional Past Surgical History / Comment(s): nasal surgery, rt shoulder surgery, left knee arthroscopy, left knee replaced, COLONOSCOPY Past Anesthesia/Blood Transfusion Reactions: Previous Problems w/ Anesthesia, Motion Sickness Additional Past Anesthesia/Blood Transfusion Reaction / Comment(s): previous knee arthroscopy - "stopped breathing - irregular heart rate"-no problems total knee Date of Last Stent Placement:: 09/23/19 Smoking Status: Never smoker - Past Family History Mother Family Medical History: Dementia Father Family Medical History: Myocardial Infarction ([place]) Brother(s) Family Medical History: No Reported History Additional Family Medical History / Comment(s): suicide Sister(s) Family Medical History: No Reported History Additional Family Medical History / Comment(s): SIDS Daughter(s) Family Medical History: No Reported History Son(s) Family Medical History: No Reported History Medications and Allergies Home Medications Medication Instructions Recorded Confirmed Type Aspirin 81 mg PO DAILY #30 chew 09/24/19 08/03/22 Rx Atorvastatin [Lipitor] 80 mg PO DAILY #30 tab 09/24/19 08/03/22 Rx Prasugrel [Effient] 10 mg PO DAILY #30 tab 09/24/19 08/03/22 Rx lisinopriL [Zestril] 2.5 mg PO DAILY #30 tab 09/24/19 08/03/22 Rx Allergies Allergy/AdvReac Type Severity Reaction Status Date / Time No Known Allergies Allergy Verified 08/03/22 11:04 Physical Examination - Knee right Appearance: effusion Effusion grade: grade 2 Varus alignment in stance: 10 degrees Tenderness with palpation: medial Pain: with flexion ROM: extension: -5 degrees ROM: flexion: 110 degrees Crepitus with motion: Yes Strength: extension: 5/5 Strength: flexion: 5/5 Meniscal tests: medial meniscal tests: positive, medial joint line pain: positive Results The patient is a well-developed well-nourished male approximately 6 foot 1, 242 pounds of endomorphic habitus. HEENT exam is nonfocal, neck supple. He has painless passive motion of the right hip. Straight leg raise is negative. His distal neurovascular appears intact right lower extremity. - Diagnostic results Knee x-ray: image reviewed (3 views of the right knee obtain the office show severe medial compartment narrowing with [id number] changes and subchondral sclerosis.) Assessment and Plan Assessment: Right knee severe tricompartmental osteoarthrosis Plan: I talked to the patient in length regarding his condition along with treatment options. At this point quite limited because of pain related to his osteoarthrosis despite conservative measures. After thorough discussion he opted to proceed with surgery. We'll plan to proceed with right total knee arthroplasty. We will institute DVT prophylaxis postoperatively. Risks and benefits were discussed at length in layman's terms.
[~2022-08-08 05:57] MED LIST: ACETAMINOPHEN TAB 500 MG TAB PO PRN; MELOXICAM 7.5 MG TAB PO PRN; TRANEXAMIC ACID IN NACL,ISO-OS 1,000 MG in SALINE 1 100ML.BAG IVPB PRN
[2022-08-08] MEDS ORDERED: DEXAMETHASONE SOD PHOSPHATE 4 MG/ML 1 ML VIAL IV ONE (06:08)
[2022-08-08] MEDS ORDERED: MIDAZOLAM 2 MG/2 ML VIAL IV PRN (06:08)
[2022-08-08] MEDS ORDERED: LIDOCAINE 1% (10MG/ML) FOR IV START INTRADERMA PRN (06:08)
[2022-08-08] MEDS: LACTATED RINGERS 1,000 ML IV SCH (06:50)
[2022-08-08] MEDS: ONDANSETRON 4 MG/2 ML VIAL IVP ONE ×2 (06:54→12:20)
[2022-08-08] MEDS ORDERED: MIDAZOLAM 2 MG/2 ML VIAL IVP ONE (07:04)
[2022-08-08] MEDS ORDERED: fentaNYL (PF) 50 MCG/1 ML VIAL IVP ONE (07:04)
--- NOTE | 2022-08-08 07:24 | P.ANPRN ---
Procedure Note - Anesthesia - Nerve Block Performed Right Adductor Canal Infusion Time Out Performed: Yes Date of Procedure: 08/08/22 Procedure Start Time: 07:03 Procedure Stop Time: 07:11 Location of Patient: PreOp Indication: Requested by Surgeon Specifically requested for management of pain by DrJohn: Tomer Mitchell Sedation Type: Sedate with meaningful contact maintained Preparation: Sterile Prep, Sterile Dressing Position: Supine Catheter: Indwelling Needle Types: Pajunk Needle Gauge: 18 Ultrasound used to visualize needle placement: Yes Ultrasound used to observe medication spread: Yes Injectate: 0.5% Ropivacaine (see comment for volume) (15 ml +15 ml NS) Blood Aspirated: No Pain Paresthesia on Injection Noted: No Resistance on Injection: Normal Image Stored and Saved: Yes Events: Uneventful and Well Tolerated
[2022-08-08] MEDS ORDERED: ROPIVACAINE 0.2%-NS ON-Q PUMP 1,090 MG, EMPTY PAIN BALL 1 EACH MISCELLANE PRN (07:25)
--- NOTE | 2022-08-08 07:25 | P.ANPRN ---
Procedure Note - Anesthesia - Nerve Block Performed Right iPack Single Time Out Performed: Yes Date of Procedure: 08/08/22 Procedure Start Time: 07:12 Procedure Stop Time: 07:16 Location of Patient: PreOp Indication: Requested by Surgeon Specifically requested for management of pain by DrJohn: Tomer Mitchell Sedation Type: Sedate with meaningful contact maintained Preparation: Sterile Prep Position: Left Lateral Needle Types: Pajunk Needle Gauge: 21 Ultrasound used to visualize needle placement: Yes Ultrasound used to observe medication spread: Yes Injectate: 0.5% Ropivacaine (see comment for volume) (15 ml + 15 ml NS) Blood Aspirated: No Pain Paresthesia on Injection Noted: No Resistance on Injection: Normal Image Stored and Saved: Yes Events: Uneventful and Well Tolerated
[2022-08-08] MEDS ORDERED: PROPOFOL 10 MG/ML 20 ML VIAL IV ONE (07:33)
[2022-08-08] MEDS ORDERED: MIDAZOLAM 2 MG/2 ML VIAL ONE (07:33)
[2022-08-08] MEDS ORDERED: ROPIVACAINE 5 MG/ML 30 ML VIAL ONE (07:33)
[2022-08-08] MEDS ORDERED: SUCCINYLCHOLINE CHLORIDE 200 MG/10 ML VIAL IV ONE (07:33)
[2022-08-08] MEDS ORDERED: TRANEXAMIC ACID IN NACL,ISO-OS 1,000 MG/100 ML BAG ONE (07:33)
[2022-08-08] MEDS ORDERED: HYDROmorphone (PF) 1 MG/ML ONE (07:33)
[2022-08-08] MEDS ORDERED: LIDOCAINE 2% INJ 20 MG/ML (2 ML VIAL) ONE (07:33)
[2022-08-08] MEDS ORDERED: SODIUM CHLORIDE 0.9% (PF) 10 ML VIAL ONE (07:33)
[2022-08-08] MEDS ORDERED: fentaNYL (PF) 50 MCG/ML 2 ML AMP ONE (07:33)
[2022-08-08] MEDS ORDERED: NALOXONE 0.4 MG/ML 1 ML VIAL IV PRN (09:24)
[2022-08-08] MEDS ORDERED: HYDROcodone/APAP 5-325MG 1 EACH TAB PO PRN (09:24)
[2022-08-08] MEDS ORDERED: HYDROmorphone 1 MG/ML 1 ML SYRINGE IVP PRN (09:24)
[2022-08-08] MEDS ORDERED: MAGNESIUM HYDROXIDE 2,400 MG/10 ML CUP PO PRN (09:24)
[2022-08-08] MEDS ORDERED: LACTATED RINGERS 1,000 ML IV ONE ×3 (09:26→13:11)
--- NOTE | 2022-08-08 09:46 | P.OP ---
Date of Procedure: 08/08/22 Preoperative Diagnosis: Right knee severe tricompartmental osteoarthrosis Postoperative Diagnosis: Same Procedure(s) Performed: Right total knee arthroplastycementedcruciate retaining Implants: [employer] journey 2 size 7 cemented femoral component, size 6 cemented tibial component, 9 mm articular surface, 35 mm cemented patellar component. [facility] Sur[facility]: Tomer Mitchell [employer] Manager #1: Ramirez Eldridge Estimated Blood Loss (ml): 50 Pathology: other (Bone fragments) Condition: stable Disposition: PACU Indications for Procedure: The patient's a 61-year-old male presents with progressive right knee pain se condary to osteoarthrosis despite conservative measures. A discussion of the risks and benefits of operative intervention versus continued conservative measures was made with the patient. He opted to proceed with surgery. Operative risks to include infection, neurovascular injury, development of blood clots, component loosening, component failure, possible need for subsequent procedures was discussed. Informed consent was obtained. Operative Findings: As below Description of Procedure: The patient was brought to the operating room, and after induction of spinal anesthesia the right lower extremity was prepped and draped in a normal fashion. The tourniquet was inflated to 270 mmHg. A longitudinal incision extending 3 finger breaths above the superior pole of the patella extending to the medial aspect the tibial tubercle was then made. The skin and subcutaneous tissues were divided sharply. Electrocautery was used for hemostasis. A medial parapatellar arthrotomy was then performed. The medial soft tissues to include the superficial and deep portions of the medial collateral ligament as well as the medial hamstring tendons were elevated subperiosteally. The proximal medial tibia osteophytes were carefully removed. The patella was everted. The knee was flexed. A portion of the retropatellar fat pad was excised sharply. The anterior cruciate ligament was sacrificed. A starting hole was made in the distal femur 1 cm anterior to the posterior cruciate origin. An intramedullary femoral guide was gently inserted planning on 5 valgus distal cut with 9 mm distal resection. The cutting block was pinned in place. The distal cut was then made. The posterior referencing sizing guide was utilized. 3 of external rotation was built into the system and verified off the trans- epicondylar axis and the posterior condyles. I felt size 7 was most appropriate. The cutting block was pinned in place. The anterior, posterior, and chamfer cuts were then made. The bone fragments were removed. A sulcus cut was then made with the appropriate guide. The trial size 7 femoral component was then placed and was fully seated. There was good anterior to posterior and medial to lateral fit. The distal peg holes were then drilled. The trial component was then removed. Attention was then paid towards preparing the proximal tibia. An extra medullary guide was utilized in line with the tibial shaft and second metatarsal distally. A 3 posterior slope was planned. I planned on 2 mm resection from the medial compartment. The cutting block was pinned in place. The proximal tibial cut was then made. The bone was removed in one fragment. The remnants of the medial and lateral menisci were excised t he capsule junction with electrocautery. The tibia sized most appropriately at size 6. The posterior osteophytes off the distal femur were carefully removed with a curved osteotome. The trial tibial and femoral components were placed along with a 9 millimeters articular surface. I was able to obtain full flexion and extension with good stability with varus and valgus stress. After several flexion and extension cycles, the tibial rotation was marked with electrocautery in line with the medial one third of the tibial tubercle. Attention was then paid towards preparing the patella. A patella reamer was utilized taking this down to 14 mm of bone stock. A good flush cut was made. The patella sized most appropriately at 35 millimeters. The peg holes were then drilled. The trial component was placed. The knee was taken through a range of motion. I had good patellofemoral tracking with no hands technique. The trial components were then removed. The tibia was prepared in the appropriate rotation with appropriate drill and keel punch. The flexion and extension gaps were checked and felt to be symmetric. The bony surfaces were prepared with pulsatile lavage and dried. The deep tibial component was then cemented in place and was fully seated. Excess cement was removed. The femoral component was cemented in place and was fully seated. Again excess cement was removed. The trial 9 millimeters surface was then inserted in the knee was put in full extension. The patella component was cemented in place. After the cement had sufficiently hardened, the knee was again taken through a range of motion. Again there was good stability in flexion and extension with varus and valgus stress. The trial articular surface was then removed. The final articular surface was placed and was impacted. Care was taken to avoid any soft tissue interposition. Pulsatile lavage was again utilized. The tourniquet was deflated with approximately 60 minutes total tourniquet time. There was minimal drainage therefore a deep drain was not placed. The medial parapatellar arthrotomy was then closed with #2 Ethibond suture. The subcutaneous tissues were reapproximated interrupted 2- 0 Vicryl sutures. The skin was reapproximated with 3-0 subarticular strata fix suture. Skin tape and adhesive was applied. A sterile dressing was applied. The patient was then awoken from sedation and transferred to recovery room in good condition. Blood loss was estimated at 50 milliliters. No complications were incurred. Sponge and needle counts were correct at the end the case. Ramirez MALCOLM assisted during the major components this case to include exposure, bone resection, and implantation.
[2022-08-08] MEDS: HYDROmorphone 0.5 MG/0.5 ML SYRINGE IVP PRN ×5 (10:17→20:42)
--- NOTE | 2022-08-08 10:21 | XR ---
EXAMINATION TYPE: XR knee limited RT DATE OF EXAM: 08/08/2022 COMPARISON: NONE HISTORY: 61-year-old male evaluation for postoperative abnormality in alignment TECHNIQUE: 2 views FINDINGS: Images show placement of right total knee arthroplasty. Old distal femoral and proximal tibial compon ents of the prosthesis are well seated without periprosthetic fracture. Alignment grossly anatomic. A nterior soft tissue swelling with scattered soft tissue air as well as joint effusion and intra-artic ular air related to recent operation. IMPRESSION: Uncomplicated postoperative appearance right total knee arthroplasty.
[2022-08-08] MEDS: HYDROcodone/APAP 7.5-325MG 1 EACH TAB PO PRN ×2 (14:01→20:10)
[2022-08-08] MEDS: SENNOSIDES-DOCUSATE SODIUM 1 EACH TAB PO SCH (20:10)
[2022-08-09] MEDS: LACTATED RINGERS 1,000 ML IV SCH (00:09)
[2022-08-09] MEDS: HYDROcodone/APAP 7.5-325MG 1 EACH TAB PO PRN ×4 (05:55→23:37)
--- NOTE | 2022-08-09 07:05 | P.PN ---
Progress Note - Text Progress Note Date: 08/09/22 Postoperative day # 1 status post total knee arthroplasty, and adductor canal catheter placed for postoperative analgesia, currently at ropivacaine 0.2% 8 mL per hour and continuous infusion, visual analogue scale is 3-4/10, patient using oral pain medication for breakthrough pain. Assessment and plan= Acute postoperative pain, adductor canal catheter for pain control, pain is well controlled we'll continue the same management.
[2022-08-09] MEDS: PRASUGREL 10 MG TAB PO SCH (07:59)
[2022-08-09] MEDS: ASPIRIN 81 MG PO SCH (07:59)
[2022-08-09] MEDS: ATORVASTATIN 80 MG TAB PO SCH (07:59)
[2022-08-09 09:39] LABS: Basophils # (A) 0.04 X 10*3/uL (0.00-0.10); Basophils % (A) 0.4 %; Eosinophils # (A) 0.03 X 10*3/uL (0.04-0.35); Eosinophils % (A) 0.3 %; HCT 38.4 % (39.6-50.0); HGB 12.7 g/dL (13.0-17.0); Immature Grans, Automated 0.5 %; Lymphocytes # (A) 1.09 X 10*3/uL (0.90-5.00); Lymphocytes % (A) 11.4 %; MCH 29.1 pg (27.0-32.0); MCHC 33.1 g/dL (32.0-37.0); MCV 88.1 fL (80.0-97.0); Mean Platelet Volume 10.5 fL (9.5-12.2); Monocytes % (A) 8.3 %; NRBC Per 100 WBC 0 /100 WBCS (0.0-0.0); Neutrophils # (A) 7.59 X 10*3/uL (1.80-7.70); Neutrophils % (A) 79.1 %; Platelet Count 186 X 10*3/uL (140-440); RBC 4.36 X 10*6/uL (4.40-5.60)
--- NOTE | 2022-08-09 09:56 | P.PN ---
Subjective Progress Note Date: 08/09/22 Principal diagnosis: Right knee osteoarthritis Patient was seen at bedside this morning resting comfortably lying semirecumbent position in bed. Patient says most the pain is located at the front of his knee at this time. Patient says he has urinated several times since surgery yesterday. Patient says he has not had bowel movement yet, however, patient says he has been passing gas. Patient says he has not yet worked with physical therapy this morning. Patient says he does have at home that can help him. Patient says he does have a walker at home. Patient denies chest pain, fever, shortness breath, nausea, vomiting, change in vision, loss of bowel/bladder control. Objective - Vital Signs Vital signs: Vital Signs Temp 97.8 F 08/09/22 07:16 Pulse 79 08/09/22 07:16 Resp 17 08/09/22 07:16 BP 120/73 08/09/22 07:16 Pulse Ox 100 08/09/22 07:16 FiO2 Intake & Output 08/08/22 08/09/22 08/09/22 18:59 06:59 18:59 Intake Total 1650 290 Output Total 1300 Balance 350 290 Weight 119.6 kg Intake: IV 1650 Intake, IV Titration 290 Amount Lactated Ringers 1,000 ml 240 @ 20 mls/hr IV .Q24H ALYSE Rx#:[id number] ceFAZolin 2 gm In Sodium 50 Chloride 0.9% 50 ml @ 100 mls/hr IVPB Q8HR ALYSE Rx# :[id number] Output: Urine 1250 Estimated Blood Loss 50 Other: # Voids 3 - Exam Right knee: Incision is clean, dry, and intact. The exofin fusion tape is in good condition. There is minimal soft tissue swelling and ecchymosis surrounding the medial and lateral aspects of the incision. Calf is soft, no tenderness with palpation. Plantar flexion, dorsiflexion, EHL, FHL are intact. Sensory exam to light touch throughout the extremity is intact, dorsal pedis pulses 2+. - Labs CBC & Chem 7: 08/09/22 06:06 Assessment and Plan Assessment: 1. Right knee osteoarthritis - Postop day 1 status post right total knee arthroplasty Plan: 1. Right knee osteoarthritis - right total knee arthroplasty performed yesterday, 08/10/2022. Patient stable at bedside this morning. Plan for discharge home today with health services pending physical therapy evaluation 2. Appreciate medical management 3. Pain management - [place] 4. DVT prophylaxis - prasugrel aspirin 5. GI prophylaxis - senna in hospital. Going home with Colace 6. PT/OT - weightbearing as tolerated with walker 7. Encourage incentive spirometer use 8. Discharge planning - discharge home today with health services Time with Patient: Less than 30
--- NOTE | 2022-08-09 10:04 | P.DS ---
Providers Date of admission: 08/09/22 07:50 Expected date of discharge: 08/09/22 Attending physician: Tomer Mitchell Consults: 08/08/22 09:24 Consult Physician Stat Consulting Provider: Sarwat Aldridge Consult Reason/Comments: s/p right total knee arthroplasty Do you want consulting provider notified?: Yes Primary care physician: Haim Adams [facility] Course: Date of admission: 08/08/2022 Date of discharge: 08/09/2022 Admission diagnosis: Right knee osteoarthritis Discharge diagnosis: Same Attending physician: Dr. Mitchell Surgical procedures: Right total knee arthroplasty Brief history: Patient is a 61-year-old male with a history of progressive primary right knee osteoarthritis. At this point patient has failed conservative treatment measures and has opted to proceed with a elective right total knee arthroplasty. Hospital course: Details of patient's surgery can be found in operative report. Patient tolerated the procedure well and was subsequently transported to orthopedic floor. Patient's orthopeidc and medical care was provided daily. Patient had daily laboratory tests performed for evaluation of overall blood counts. Patient had daily physical therapy to include strengthening range of motion as well as education with walker ambulation. Patient was treated with Effient and aspirin for their postoperative DVT prophylaxis during their inazt ie stay. Patient was noted to have a relatively uneventful postoperative course. Patient reported satisfactory pain control with oral pain medications by postoperative day 1. Patient showed satisfactory progress with physical therapy. Patient moved steadily through the program and had no difficulty meeting the goals by postoperative day 1. Given patient's otherwise satisfactory course and having met physical therapy goals, plan is to discharge patient home with health services on postoperative day 1. Discharge condition/disposition: Patient will be discharged home with health services in stable condition. Discharge medications: Instructions are given on resumption of patient's normal daily medications per primary care recommendation, in addition patient will be prescribed [place] 7.5 mg/325 mg; Colace; resume Effient and aspirin for DVT prophylaxis. Orthopedic Discharge Instructions: 1. Wound care and infection precautions, keep incision dry and covered while showering, no lotions, creams, moisturizers. No soaking, pools, hot tubs. Do not scrub over incision. 2. Weight-bear as tolerated with walker / cane until follow-up. 3. Ice and elevate when necessary. Do not exceed 20 minutes per hour with ice pack. 4. Utilize compression sleeve until seen at first follow up appointment. 5. Pain meds and anticoagulants per prescription. 6. Pain medication has potential to cause constipation. Increase oral fluid and fiber intake. Contact primary care provider if you have not had a bowel movement within 48 hours after discharge. 7. No anti-inflammatory medication until discussed at first post operative visit, this including Motrin, Aleve, Mobic, Diclofenac. 8. Follow up in office at 2 weeks postop with Josafat Jiménez PA-C / Ramirez Eldridge PA-C 9. Follow up with your primary care doctor 7-10 days after discharge. 10. Contact [facility] with any questions, . Keep incision clean, dry, intact. While showering, cover fusion tape with Saran wrap. The fusion tape on until follow-up appointment in office in 2 weeks Medications: [place] 7.5 mg/325 mg 12 every 6 hours; Colace; resume Effient and Aspirin gor DVT ppx Assessment: Right knee osteoarthritis Procedures: Right total knee arthroplasty Patient Condition at Discharge: Good Plan - Discharge Summary Discharge Rx Participant: No New Discharge Prescriptions: New Docusate [Colace] 100 mg PO DAILY #30 capsule HYDROcodone/APAP 7.5-325MG [[place] 7.5] 1 - 2 each PO Q6HR PRN #36 tab PRN Reason: Pain No Action Aspirin 81 mg PO DAILY #30 chew Prasugrel [Effient] 10 mg PO DAILY #30 tab lisinopriL [Zestril] 2.5 mg PO DAILY #30 tab Atorvastatin [Lipitor] 80 mg PO DAILY #30 tab Discharge Medication List Aspirin 81 mg PO DAILY #30 chew 09/24/19 [Rx] Atorvastatin [Lipitor] 80 mg PO DAILY #30 tab 09/24/19 [Rx] Prasugrel [Effient] 10 mg PO DAILY #30 tab 09/24/19 [Rx] lisinopriL [Zestril] 2.5 mg PO DAILY #30 tab 09/24/19 [Rx] Docusate [Colace] 100 mg PO DAILY #30 capsule 08/09/22 [Rx] HYDROcodone/APAP 7.5-325MG [[place] 7.5] 1 - 2 each PO Q6HR PRN #36 tab 08/09/22 [Rx] Follow up Appointment(s)/Referral(s): Ramirez Eldridge, YE [PHYSICIAN CAN STERILIZER] - 2 Weeks Patient Instructions/Handouts: Knee Replacement (DC) Activity/Diet/Wound Care/Special Instructions: Orthopedic Discharge Instructions: 1. Wound care and infection precautions, keep incision dry and covered while showering, no lotions, creams, moisturizers. No soaking, pools, hot tubs. Do not scrub over incision. 2. Weight-bear as tolerated with walker / cane until follow-up. 3. Ice and elevate when necessary. Do not exceed 20 minutes per hour with ice pack. 4. Utilize compression sleeve until seen at first follow up appointment. 5. Pain meds and anticoagulants per prescription. 6. Pain medication has potential to cause constipation. Increase oral fluid and fiber intake. Contact primary care provider if you have not had a bowel movement within 48 hours after discharge. 7. No anti-inflammatory medication until discussed at first post operative visit, this including Motrin, Aleve, Mobic, Diclofenac. 8. Follow up in office at 2 weeks postop with Josafat Jiménez PA-C / Ramirez Eldridge PA-C 9. Follow up with your primary care doctor 7-10 days after discharge. 10. Contact [facility] with any questions, . Keep incision clean, dry, intact. While showering, cover fusion tape with Saran wrap. The fusion tape on until follow-up appointment in office in 2 weeks Medications: [place] 7.5 mg/325 mg 12 every 6 hours; Colace; resume Effient and Aspirin for DVT ppx Discharge Disposition: HOME WITH HOME HEALTH SERVICES
[2022-08-09 10:11] LABS: ALT 23 U/L (10-49); AST 22 U/L (14-35); African American GFR (CKD) 105.7 (60.0-200.0); Albumin 3.9 g/dL (3.8-4.9); Albumin/Globulin Ratio 2.17 (1.60-3.17); Alkaline Phosphatase 86 U/L (41-126); BUN/Creat Ratio 13.78 Ratio (12.00-20.00); Blood Urea Nitrogen 12.4 mg/dL (9.0-27.0); Calcium 8.9 mg/dL (8.7-10.3); Carbon Dioxide 25.6 mmol/L (20.0-27.5); Chloride 101 mmol/L (96-109); Globulin 1.8 g/dL (1.6-3.3); Glucose 131 mg/dL (70-110); Non-African American GFR(CKD) 91.2 (60.0-200.0); Potassium 4.4 mmol/L (3.5-5.5); Sodium 138 mmol/L (135-145); Total Protein 5.7 g/dL (6.2-8.2)
[2022-08-09] MEDS: hydrOXYzine pamoate 25 MG CAP PO PRN ×3 (12:31→23:37)
--- NOTE | 2022-08-09 14:13 | P.CONS ---
History of Present Illness - Reason for Consult Consult date: 08/09/22 Medical management postop right total knee arthroplasty - History of Present Illness This is a 61-year-old male who was admitted under orthopedic services status post right total knee arthroplasty being closely monitored. Patient reports he follows with Dr. Adams in the outpatient setting the past medical history of hy pertension, osteoarthritis, sleep apnea uses a CPAP at home. Patient reports he has never smoked denies any illicit drug use and denies alcohol use. On exam this morning patient is having extreme amount of pain associated with some dizziness and did just receive IV Dilaudid. Recommending holding Dilaudid and continuing with oral medications. Patient became too dizzy to complete working with physical therapy and PT/OT therapy will be back to reevaluate. Patient currently sitting up in the chair denies lightheadedness or feelings of passing out although reports with sudden movements he does become dizzy. Labs reviewed including CBC and BMP and within normal limits. TSH and free T3 were normal as well. Pulmonary indications have been reviewed and resumed. Possibly planning on discharging this afternoon although will be closely monitored for control of pain. Review Of Systems: Constitutional: No fever, no chills, no night sweats. No weight change. No weakness, fatigue or lethargy. No daytime sleepiness. EENT: No headache. No blurred vision or double vision, no loss of vision. No loss of Hearing, no ringing in the ears, no dizziness. No nasal drainage or congestion. No epistaxis. No sore throat. Lungs: No shortness of breath, cough, no sputum production. No wheezing. Cardiovascular: No chest pain, no lower extremity edema. No palpitations. No paroxysmal nocturnal dyspnea. No orthopnea. No lightheadedness or dizziness. No syncopal episodes. Abdominal: No abdominal pain. No nausea, vomiting. No diarrhea. No constipation. No bloody or tarry stools.. No loss of appetite. Genitourinary: No dysuria, increased frequency, urgency. No urinary retention. Musculoskeletal: Reports myalgias. No muscle weakness, no gait dysfunction, no frequent falls. No back pain. No neck pain. Reports right knee pain Integumentary: No wounds, no lesions. No rash or pruritus. No unusual bruising. No change in hair or nails. Neurologic: No aphasia. No facial droop. No change in mentation. No head injury. No headache. No paralysis. No paresthesia. Patient reports some dizziness post IV Dilaudid administration Psychiatric: No depression. No anxiety. No mood swings. Endocrine: No abnormal blood sugars. No weight change. No excessive sweating or thirst. No cold intolerance. PHYSICAL EXAMINATION: GENERAL: The patient is alert and oriented x4, Well developed, well nourished. Obese HEENT: Pupils are round and equally reacting to light. EOMI. no scleral icterus. No conjunctival pallor. Normocephalic, atraumatic. No pharyngeal erythema. No thyromegaly. CARDIOVASCULAR: S1 and S2 muffled PULMONARY: diminished breath sounds bilaterally with no wheezing or rhonchi noted. ABDOMEN: soft. Nontender on exam. obese. non-distended, normoactive bowel sounds. No palpable organomegaly. MUSCULOSKELETAL: No joint swelling or deformity. EXTREMITIES: No cyanosis, clubbing, or pedal edema. Right knee surgical dressing is dry and intact with epidural pain pump noted NEUROLOGICAL: Gross neurological examination did not reveal any focal deficits. Diffuse weakness SKIN: No rashes. Assessment: Status post right total knee arthroplasty History of hypertension Obesity with a BMI of 39.2 History of sleep apnea uses CPAP at home GI prophylaxis DVT prophylaxis Full code Plan: Recommend to continue with current medications and management per orthopedic services. Home medications have been reviewed and resumed including blood pressure medica tions Patient was up and working with physical therapy and became dizzy and had just received IV Dilaudid. Recommend holding Dilaudid and continue with oral pain medications PT/OT to reevaluate with stairs once less dizzy Patient with incentive spirometer at the bedside encourage the patient to con tinue using at least 10 times every hour while awake Repeat labs ordered and reviewed and within normal limits Patient is medically stable with possible discharge this afternoon otherwise will be holding closely observed overnight for better pain management We will continue to follow along with orthopedics during hospitalization. Thank you kindly for this consultation. The impression and plan of care has been dictated by Porsche Cox, nurse practitioner as directed. Dr. Oly MD I have performed a history and examination and MDM of this patient, discussed the same with the dictator, and agree with the dictator's assessment and plan as written ,documented as a scribe. Based on total visit time, I have performed more than 50% of the visit. Any additional findings or plans will be noted. Past Medical History Past Medical History: Hyperlipidemia, Hypertension, Osteoarthritis (OA), Sleep Apnea/CPAP/BIPAP Additional Past Medical History / Comment(s): varicose veins, uses CPAP History of Any Multi-Drug Resistant Organisms: None Reported Past Surgical History: Appendectomy, Heart Catheterization With Stent, Joint Replacement, Orthopedic Surgery Additional Past Surgical History / Comment(s): nasal surgery, rt shoulder surgery, left knee arthroscopy, left knee replaced, COLONOSCOPY Past Anesthesia/Blood Transfusion Reactions: Previous Problems w/ Anesthesia, Motion Sickness Additional Past Anesthesia/Blood Transfusion Reaction / Comm: previous knee arthroscopy - "stopped breathing - irregular heart rate"-no problems total knee Date of Last Stent Placement:: 09/23/19 Past Psychological History: No Psychological Hx Reported Smoking Status: Never smoker Past Alcohol Use History: None Reported Past Drug Use History: None Reported - Past Family History Mother Family Medical History: Dementia Father Family Medical History: Myocardial Infarction (CT) Brother(s) Family Medical History: No Reported History Additional Family Medical History / Comment(s): suicide Sister(s) Family Medical History: No Reported History Additional Family Medical History / Comment(s): SIDS Daughter(s) Family Medical History: No Reported History Son(s) Family Medical History: No Reported History Medications and Allergies Home Medications Medication Instructions Recorded Confirmed Type Aspirin 81 mg PO DAILY #30 chew 09/24/19 08/03/22 Rx Atorvastatin [Lipitor] 80 mg PO DAILY #30 tab 09/24/19 08/03/22 Rx Prasugrel [Effient] 10 mg PO DAILY #30 tab 09/24/19 08/03/22 Rx lisinopriL [Zestril] 2.5 mg PO DAILY #30 tab 09/24/19 08/08/22 Rx Docusate [Colace] 100 mg PO DAILY #30 capsule 08/09/22 Rx HYDROcodone/APAP 7.5-325MG [[place] 1 - 2 each PO Q6HR PRN #36 tab 08/09/22 Rx 7.5] Allergies Allergy/AdvReac Type Severity Reaction Status Date / Time No Known Allergies Allergy Verified 08/08/22 07:38 Physical Exam Vitals: Vital Signs Temp Pulse Resp BP Pulse Ox 08/09/22 07:16 97.8 F 79 17 120/73 100 08/09/22 07:10 97.8 F 79 17 120/73 100 08/09/22 01:57 99.4 F 78 15 118/69 96 08/08/22 19:58 97.5 F L 78 15 123/78 97 08/08/22 16:24 97.8 F 76 15 139/77 98 08/08/22 14:24 97.9 F 79 16 140/76 98 08/08/22 14:00 65 107/71 93 L 08/08/22 13:48 97.6 F 69 113/66 95 08/08/22 13:08 98 F 79 18 142/74 98 08/08/22 13:03 73 16 115/53 97 08/08/22 12:50 69 16 137/78 95 08/08/22 12:22 71 18 148/76 97 08/08/22 12:03 73 16 118/69 95 08/08/22 11:48 66 16 119/78 98 08/08/22 11:32 73 16 107/53 97 08/08/22 11:17 70 16 109/66 99 08/08/22 11:00 66 16 114/64 99 08/08/22 10:45 67 16 115/61 100 08/08/22 10:30 66 16 125/65 98 08/08/22 10:15 71 16 135/63 98 08/08/22 10:00 76 16 128/60 100 08/08/22 09:44 96.8 F L 77 22 134/62 96 Intake and Output 08/08/22 08/09/22 08/09/22 22:59 06:59 14:59 Intake Total 290 Output Total 800 550 Balance -800 290 -550 Intake: Intake, IV Titration 290 Amount Lactated Ringers 1,000 ml 240 @ 20 mls/hr IV .Q24H ALYSE Rx#:[id number] ceFAZolin 2 gm In Sodium 50 Chloride 0.9% 50 ml @ 100 mls/hr IVPB Q8HR ALYSE Rx# :[id number] Output: Urine 800 550 Other: # Voids 3 Results CBC & Chem 7: 08/09/22 06:06 08/09/22 06:06
[2022-08-09] MEDS: SENNOSIDES-DOCUSATE SODIUM 1 EACH TAB PO SCH (20:26)
[2022-08-10 02:34] VITALS: TEMP 98.1
[2022-08-10] MEDS: LACTATED RINGERS 1,000 ML IV SCH (05:17)
[2022-08-10] MEDS: hydrOXYzine pamoate 25 MG CAP PO PRN ×2 (05:19→12:25)
[2022-08-10] MEDS: HYDROcodone/APAP 7.5-325MG 1 EACH TAB PO PRN (05:19)
[2022-08-10 08:02] VITALS: BP 117/74; PULSE 87; RESP 17
[2022-08-10] MEDS: ASPIRIN 81 MG PO SCH (08:36)
[2022-08-10] MEDS: PRASUGREL 10 MG TAB PO SCH (08:36)
[2022-08-10] MEDS: ATORVASTATIN 80 MG TAB PO SCH (08:36)
--- NOTE | 2022-08-10 12:41 | P.PN ---
Subjective Progress Note Date: 08/10/22 Principal diagnosis: Right knee osteoarthritis Patient was seen at bedside this morning resting comfortably lying semirecumbent position in bed. Patient says most the pain is located at the front of his knee at this time. Patient says he has urinated several times since surgery. Patient feels that this morning his pain is under much better control than it was yesterday. Patient says he is looking forward to working with physical therapy later this morning. Patient is also looking forward to going home today as well. Patient says he does have a walker for home. Patient says he has not had bowel movement yet, however, patient says he has been passing gas. Patient says at home can help him. Patient denies chest pain, fever, shortness breath, nausea, vomiting, change in vision, loss of bowel/bladder control. Objective - Vital Signs Vital signs: Vital Signs Temp 98.1 F 08/10/22 02:00 Pulse 87 08/10/22 07:35 Resp 17 08/10/22 07:35 BP 117/74 08/10/22 07:35 Pulse Ox 92 L 08/10/22 07:35 FiO2 Intake & Output 08/09/22 08/10/22 08/10/22 18:59 06:59 18:59 Output Total 900 Balance -900 Output: Urine 900 Other: # Voids 2 3 - Exam Right knee: Incision is clean, dry, and intact. The exofin fusion tape is in good condition. There is minimal soft tissue swelling and ecchymosis surrounding the medial and lateral aspects of the incision. Calf is soft, no tenderness with palpation. Plantar flexion, dorsiflexion, EHL, FHL are intact. Sensory exam to light touch throughout the extremity is intact, dorsal pedis pulses 2+. - Labs CBC & Chem 7: 08/09/22 06:06 08/09/22 06:06 Labs: Abnormal Lab Results - Last 24 Hours (Table) 08/09/22 08/09/22 Range/Units 06:06 06:06 RBC 4.36 L (4.40-5.60) X 10*6/uL Hgb 12.7 L (13.0-17.0) g/dL Hct 38.4 L (39.6-50.0) % Immature Gran # 0.05 H (0.00-0.04) X 10*3/uL Eosinophils # 0.03 L (0.04-0.35) X 10*3/uL Glucose 131 H (70-110) mg/dL Total Protein 5.7 L (6.2-8.2) g/dL Assessment and Plan Assessment: 1. Right knee osteoarthritis - Postop day 2 status post right total knee arthroplasty Plan: 1. Right knee osteoarthritis - right total knee arthroplasty performed 08/10/2022. Patient stable at bedside this morning. Plan for discharge home today with health services today. 2. Appreciate medical management 3. Pain management - [place]; Vistaril 4. DVT prophylaxis - prasugrel aspirin 5. GI prophylaxis - senna in hospital. Going home with Colace 6. PT/OT - weightbearing as tolerated with walker 7. Encourage incentive spirometer use 8. Discharge planning - discharge home today with health services Time with Patient: Less than 30
--- NOTE | 2022-08-12 08:13 | P.PN ---
Subjective Progress Note Date: 08/10/22 - Reason for Consult Consult date: 08/09/22 Medical management postop right total knee arthroplasty - History of Present Illness This is a 61-year-old male who was admitted under orthopedic services status post right total knee arthroplasty being closely monitored. Patient reports he follows with Dr. Adams in the outpatient setting the past medical history of hypertension, osteoarthritis, sleep apnea uses a CPAP at home. Patient reports he has never smoked denies any illicit drug use and denies alcohol use. On exam this morning patient is having extreme amount of pain associated with some dizziness and did just receive IV Dilaudid. Recommending holding Dilaudid and continuing with oral medications. Patient became too dizzy to complete working with physical therapy and PT/OT therapy will be back to reevaluate. Patient c urrently sitting up in the chair denies lightheadedness or feelings of passing out although reports with sudden movements he does become dizzy. Labs reviewed including CBC and BMP and within normal limits. TSH and free T3 were normal as well. Pulmonary indications have been reviewed and resumed. Possibly planning on discharging this afternoon although will be closely monitored for control of pain. 08/10/2022 Patient is seen this morning in follow-up reports his pain is better controlled. Patient reports he is not taking anymore Dilaudid and is not experiencing any more dizziness or lightheadedness. Patient reports his pain is controlled and plans on discharging today. Patient will be going home with home care and reports his spouse can help him. Incentive spirometer at the bedside encourage the patient to take home to continue using at least 10 times every hour while awake. Patient instructed to follow-up with primary care provider on discharge. Patient is afebrile denies chest pain or shortness of breath. Patient reports to tolerating diet reports passing gas and did have a bowel movement. Patient is urinating without difficulties. Review of systems: Constitutional: No reports of fatigue, fever, or chills Cardiovascular: No reports of chest pain or palpitations Respiratory: No reports of shortness of breath or cough GI: No reports of nausea, vomiting, or diarrhea : No reports of dysuria or retention Neurovascular: No reports of weakness, reports some right knee pain All medications have been reviewed PHYSICAL EXAMINATION: GENERAL: The patient is alert and oriented x4, Well developed, well nourished. Obese HEENT: Pupils are round and equally reacting to light. EOMI. no scleral icterus. No conjunctival pallor. Normocephalic, atraumatic. No pharyngeal erythema. No thyromegaly. CARDIOVASCULAR: S1 and S2 muffled PULMONARY: diminished breath sounds bilaterally with no wheezing or rhonchi noted. ABDOMEN: soft. Nontender on exam. obese. non-distended, normoactive bowel sounds. No palpable organomegaly. MUSCULOSKELETAL: No joint swelling or deformity. EXTREMITIES: No cyanosis, clubbing, or pedal edema. Right knee surgical dressing is dry and intact with epidural pain pump noted NEUROLOGICAL: Gross neurological examination did not reveal any focal deficits. Diffuse weakness SKIN: No rashes. Assessment: Status post right total knee arthroplasty History of hypertension Obesity with a BMI of 39.2 History of sleep apnea uses CPAP at home GI prophylaxis DVT prophylaxis Full code Plan: Recommend to continue with current medications and management per orthopedic services. Home medications have been reviewed and resumed including blood pressure medications PT/OT worked with the patient and able to do stairs and will be going home with home care. Patient has support at home Patient with incentive spirometer at the bedside encourage the patient to continue using at least 10 times every hour while awake, patient encouraged to continue using while at home as well Patient is medically stable with plans for discharge this afternoon We will continue to follow along with orthopedics during hospitalization. Thank you kindly for this consultation. The impression and plan of care has been dictated by Porcshe Cox, nurse practitioner as directed. Dr. Oly MD I have performed a history and examination and MDM of this patient, discussed the same with the dictator, and agree with the dictator's assessment and plan as written ,documented as a scribe. Based on total visit time, I have performed more than 50% of the visit. Any additional findings or plans will be noted. Objective - Vital Signs Vital signs: Vital Signs Temp 98.1 F 08/10/22 02:00 Pulse 87 08/10/22 07:35 Resp 17 08/10/22 07:35 BP 117/74 08/10/22 07:35 Pulse Ox 92 L 08/10/22 07:35 FiO2 - Labs CBC & Chem 7: 08/09/22 06:06 08/09/22 06:06
== END 2022-08-10 15:06 | disposition home health service (06) ==
LOC: OR 05:57 → 4SSUR 09:45 → OR 08-09 07:50
PROVIDERS: ADMIT Orthopaedic Surgery; ATTEND Orthopaedic Surgery
DX: M17.11 Unilateral primary osteoarthritis, right knee (principal); I10 Essential (primary) hypertension; I25.10 Atherosclerotic heart disease of native coronary artery without angina pectoris; G89.18 Other acute postprocedural pain; R42 Dizziness and giddiness; E78.5 Hyperlipidemia, unspecified; I83.90 Asymptomatic varicose veins of unspecified lower extremity; G47.33 Obstructive sleep apnea (adult) (pediatric); E66.9 Obesity, unspecified; Z68.39 Body mass index [BMI] 39.0-39.9, adult; Z90.49 Acquired absence of other specified parts of digestive tract; Z95.5 Presence of coronary angioplasty implant and graft; Z96.652 Presence of left artificial knee joint; Z98.890 Other specified postprocedural states; Z79.82 Long term (current) use of aspirin; Z79.02 Long term (current) use of antithrombotics/antiplatelets; Z79.899 Other long term (current) drug therapy; Z82.0 Family history of epilepsy and other diseases of the nervous system; Z82.49 Family history of ischemic heart disease and other diseases of the circulatory system; Z81.8 Family history of other mental and behavioral disorders; Z84.82 Family history of sudden infant death syndrome
CPT/HCPCS: 97116; 97161; 64999; 64448; 76942; 86900; 86901; 84481; 80053; 84443; 85025; 86850; 88300; 73560; 27447; G0378 ×2; C1713 ×2; C1776; C1751; J2250; J0330; J1100; J0690 ×2; J2405; J3010 ×2; J1170 ×3; J2795 ×2; J2704; J2001

== ENCOUNTER → 2024-02-05 | Outpatient (CLI) | payer BC ==
--- NOTE | 2024-02-05 13:36 | CA ---
Stress Echo Report Ector Ferguson Age: 63 Gender: M : 1960 Exam Date: 02/05/2024 09:20 Exam Location: [facility] Ht (in): 69 Wt (lb): 250 Ordering Physician: Haim Adams MD Referring Physician: Winston Doan MD ([id number]) Director Of Architecture: RUDDY Technologist Procedure CPT: Indication: I20.9 Angina ICD-9 Codes: Rhythm: Patient History: DIFFICULTY IN BREATHING, ANGINA, HTN, HYPERCHOLESTEROLEMIA, FAMILY HX OF HEART DISEASE, PRIOR HEART CATH WITH STENT Cardiac Medications: Medications in past 24 hours: Contrast: N/A Stress Results Protocol: Laith Total dose(mL): Exercise Duration (min:sec): 9:[address] Depression (mm): Angina Score: Plascencia Score: METS: 10.5 Resting HR: 70 Resting BP: 107 / 75 Peak HR: 138 Peak BP: 208 / 91 Max Predicted HR: 156 88 % Max Predicted HR Target HR: 133 Double Product: [id number] Stress Summary: BP Response: Reason for Termination: MAX EXERTION/TARGET HR Cardiac Symptoms: NO SYMPTOMS ECG Analysis Resting ECG: Stress ECG: Arrhythmia: Echo Analysis Resting Echo: Peak Echo Analysis: MEASUREMENTS (Male/Female) Normal Values CONCLUSIONS Patient underwent exercise stress echo with a Laith protocol treadmill stress test. Patient exercised into Stage for a total of 9 minutes and 7 seconds reaching a total of 10.5 METS. Patient's maximum heart rate was 138 which represented 88% age- predicted maximum heart rate. Stress EKG portion: At baseline patient's EKG showed normal sinus rhythm, normal axis, no significant ST or T wave abnormalities. At peak exercise, EKG showed no significant change from baseline. Stress echo portion: 2-D echocardiogram was performed in the parasternal long, personal short, apical 2 and apical four-chamber views at rest, peak exercise and in recovery. At baseline, echocardiogram showed left ventricular ejection fraction 55% without wall motion abnormalities. With peak exercise, echocardiogram shows improvement in left ventricular ejection fraction, increase contractility, decrease in left ventricular end systolic dimension without wall motion abnormalities consistent with a normal response to exercise. Conclusions: 1. Normal EKG and echo response to exercise without evidence of inducible ischemia. 2. Fair exercise capacity. Dr. Bi Frazier DO (Electronically Signed) Final Date: 05 February 2024 13:35
== END | disposition home or self-care (01) ==
LOC: RADNMMAIN 08:44
PROVIDERS: ATTEND Internal Medicine Geriatric Medicine
DX: I20.9 Angina pectoris, unspecified (principal); I10 Essential (primary) hypertension; E78.00 Pure hypercholesterolemia, unspecified; Z82.49 Family history of ischemic heart disease and other diseases of the circulatory system; Z98.890 Other specified postprocedural states
CPT/HCPCS: 93351

== ENCOUNTER → 2024-03-26 | Outpatient (CLI) | payer BC ==
--- NOTE | 2024-03-26 14:42 | US ---
EXAMINATION TYPE: US venous doppler duplex LE LT DATE OF EXAM: 03/26/2024 2:14 PM COMPARISON: NONE CLINICAL INDICATION: Male, 63 years old with history of M79.605 Pain in left leg; left lower leg redn ess and swelling. On blood thinners. SIDE PERFORMED: Left TECHNIQUE: The lower extremity deep venous system is examined utilizing real time linear array sonog lia with graded compression, doppler sonography and color-flow sonography. VESSELS IMAGED: Common Femoral Vein Deep Femoral Vein Greater Saphenous Vein * Femoral Vein Popliteal Vein Small Saphenous Vein * Proximal Calf Veins (* superficial vessels) Grayscale, color doppler, spectral doppler imaging performed of the deep veins of the lower left extr emity. There is normal flow, compressibility, vascular waveforms. Left Leg: Negative for DVT IMPRESSION: No deep venous thrombosis of the left lower extremity.
== END | disposition home or self-care (01) ==
LOC: RADUSWWP 13:52
PROVIDERS: ATTEND Internal Medicine Geriatric Medicine
DX: M79.605 Pain in left leg